=== PATIENT | male | born 1955 | race Caucasian/White ===

== ENCOUNTER 2017-08-12 12:41 | Inpatient (IN) | payer OTHER ==
[~2017-08-12] VITALS: Ht 180.3 cm; Wt 89.6 kg
[~2017-08-12 12:41] MED LIST: AMOCLA875 PO; ASPI81CH PO; CLIN300 PO; CLOP75 PO; CRUTCH2 XX; Cymbalta20 MG PO; HYDCHL25 PO; HYDR1TAB94 PO; INSDET100; INSDET100 SC; ISOD40ER; ISOMON20 PO; LISI5 PO; LUMIGAN2.5 ML LEFTEYE; MAGOXI400 PO; METO50 PO; Norco 5-325 Ta1 EACH PO; Novolog100 UNIT/1; PREG300 PO; SIMBRINZA 1%-0.28 ML LEFTEYE; SIMV10 PO; Zofran Odt8 MG SL
[2017-08-12] MEDS ORDERED: Norco 7.5-3251 EACH PO (13:00)
[2017-08-12 13:37] LABS: BASOPHILS ABSOLUTE AUTO 0.01 K/mm3 (0.00-0.23); BASOPHILS PERCENT AUTO 0 % (0-2); Hemoglobin 9.7 g/dL (13.5-17.5); IMMATURE GRAN ABSOLUTE AUTO 0.02 K/mm3 (0.00-0.10); IMMATURE GRAN PERCENT AUTO 0 % (0-1); Mean Platelet Volume 10.2 fL (9.1-12.4)
[2017-08-12 13:43] LABS: EOSINOPHILS ABSOLUTE AUTO 0.06 K/mm3 (0.00-0.68); EOSINOPHILS PERCENT AUTO 1 % (0-6); Hematocrit 29.8 % (37.0-53.0); LYMPHOCYTES ABSOLUTE AUTO 1.75 K/mm3 (0.84-5.20); LYMPHOCYTES PERCENT AUTO 33 % (21-46); MONOCYTES ABSOLUTE AUTO 0.69 K/mm3 (0.16-1.47); MONOCYTES PERCENT AUTO 13 % (4-13); Mean Corpuscular HGB 30.3 pg (26.0-34.0); Mean Corpuscular HGB Conc 32.6 g/dL (31.5-36.5); Mean Corpuscular Volume 93 fL (80-100); NEUTROPHILS ABSOLUTE AUTO 2.81 K/mm3 (1.96-9.15); NEUTROPHILS PERCENT AUTO 53 % (41-73); NRBC ABSOLUTE 0.03 K/mm3 (0.00-0.02); NRBC Auto 0.6 /100 WBC (0.0-0.2); Platelet Count 199 K/mm3 (150-400); RDW Coefficient Variation 12.5 % (11.7-14.2); RDW Standard Deviation 42.7 fL (35.1-46.3); White Blood Cell Count 5.34 K/mm3 (4.00-11.30)
[2017-08-12 13:53] LABS: Alanine Aminotransfer (ALT/SGP 27 U/L (12-78); Albumin, Blood 2.7 g/dL (3.4-5.0); Albumin/Globulin Ratio 0.8 (0.8-1.8); Alk Phos 57 U/L (50-136); Anion Gap 7 mmol/L (6-16); Aspartate Aminotrans (AST/SGOT 18 U/L (12-37); Bilirubin, Total 0.7 mg/dL (0.1-1.0); Blood Urea Nitrogen 16 mg/dL (8-24); Bun/Creatinine Ratio 22.7 (12.0-20.0); CO2, Blood 27 mmol/L (21-32); Calcium, Blood 8.5 mg/dL (8.5-10.1); Chloride, Blood 103 mmol/L (98-108); Creatinine, Blood 0.71 mg/dL (0.60-1.20); Globulin, Blood 3.4 g/dL (2.2-4.0); Glomerular Filtration Rate >60 (60-); Glucose, Blood 149 mg/dL (70-99); Magnesium, Blood 2.1 mg/dL (1.6-2.4); Sodium, Blood 137 mmol/L (136-145); Total Protein, Blood 6.1 g/dL (6.4-8.2)
[2017-08-12 16:24] LABS: IMMATURE RETIC FRACTION 14.3 % (2.3-16.0); RETIC HGB EQUIVALENT 33.9 pg (28.20-36.60); RETICULOCYTE COUNT PERCENT 2.64 % (0.50-2.50)
[2017-08-14 08:31] LABS: Hematocrit 26.2 % (37.0-53.0); Hemoglobin 8.8 g/dL (13.5-17.5)
[2017-08-14 13:59] LABS: Hemoglobin 8.7 g/dL (13.5-17.5)
[2017-08-14 14:30] LABS: International Normalized Ratio 1.12; Prothrombin Time Results 11.7 Sec (9.7-11.5)
[2017-08-15 04:56] LABS: BASOPHILS PERCENT AUTO 0 % (0-2); EOSINOPHILS ABSOLUTE AUTO 0.07 K/mm3 (0.00-0.68); EOSINOPHILS PERCENT AUTO 2 % (0-6); Hemoglobin 8.5 g/dL (13.5-17.5); IMMATURE GRAN ABSOLUTE AUTO 0.02 K/mm3 (0.00-0.10); IMMATURE GRAN PERCENT AUTO 1 % (0-1); LYMPHOCYTES ABSOLUTE AUTO 1.24 K/mm3 (0.84-5.20); LYMPHOCYTES PERCENT AUTO 30 % (21-46); MONOCYTES ABSOLUTE AUTO 0.49 K/mm3 (0.16-1.47); MONOCYTES PERCENT AUTO 12 % (4-13); Mean Corpuscular HGB 29.6 pg (26.0-34.0); Mean Corpuscular HGB Conc 32.7 g/dL (31.5-36.5); Mean Corpuscular Volume 91 fL (80-100); Mean Platelet Volume 10.5 fL (9.1-12.4); NEUTROPHILS ABSOLUTE AUTO 2.33 K/mm3 (1.96-9.15); NEUTROPHILS PERCENT AUTO 56 % (41-73); Platelet Count 213 K/mm3 (150-400); RDW Coefficient Variation 11.9 % (11.7-14.2); RDW Standard Deviation 39.2 fL (35.1-46.3); Red Blood Cell Count 2.87 M/mm3 (4.30-5.90); White Blood Cell Count 4.15 K/mm3 (4.00-11.30)
[2017-08-15 05:21] LABS: Anion Gap 6 mmol/L (6-16); Blood Urea Nitrogen 12 mg/dL (8-24); Bun/Creatinine Ratio 25.3 (12.0-20.0); CO2, Blood 27 mmol/L (21-32); Calcium, Blood 8.6 mg/dL (8.5-10.1); Chloride, Blood 103 mmol/L (98-108); Creatinine, Blood 0.48 mg/dL (0.60-1.20); Glomerular Filtration Rate >60 (60-); Glucose, Blood 271 mg/dL (70-99); Potassium, Blood 4.4 mmol/L (3.5-5.5); Sodium, Blood 136 mmol/L (136-145)
[2017-08-15 23:13] LABS: Stool Occult Blood Guaiac 1 Neg (Neg)
[2017-08-17] MEDS ORDERED: Milk Of Ma400 MG/5 M PO (09:01)
[2017-08-17] MEDS ORDERED: DOCU100 PO (09:02)
[2017-08-17] MEDS ORDERED: Bactrim Ds Tab1 EACH PO (09:03)
[2017-08-17] MEDS ORDERED: FERSU220EL PO (09:03)
[2017-08-17] MEDS ORDERED: HYDR1TAB94 PO (09:04)
== END 2017-08-17 18:45 | disposition home or self-care (01) | DRG 982 ==
LOC: ER 12:41 → MEDS 12:42 → SURS 12:42 → MEDS 17:45 → SURS 08-16 10:49
PROVIDERS: Internal Medicine; Orthopaedic Surgery
PROC: 0QSH36Z Reposition Left Tibia with Intramedullary Internal Fixation Device, Percutaneous Approach (ICD-10-PCS; principal; 2017-08-16 07:30)
DX: I95.1 Orthostatic hypotension (principal); S82.202A Unspecified fracture of shaft of left tibia, initial encounter for closed fracture; D64.9 Anemia, unspecified; I25.10 Atherosclerotic heart disease of native coronary artery without angina pectoris; Z79.4 Long term (current) use of insulin; W19.XXXA Unspecified fall, initial encounter; S82.302A Unspecified fracture of lower end of left tibia, initial encounter for closed fracture; S82.492A Other fracture of shaft of left fibula, initial encounter for closed fracture; E10.40 Type 1 diabetes mellitus with diabetic neuropathy, unspecified; I10 Essential (primary) hypertension
CPT/HCPCS: 36415; 73590; 73610; 80048; 80053; 82272; 82533; 82607; 82728; 82746; 82947; 83540; 83550; 83735; 85014; 85018; 85025; 85045; 85610; 85730; 86850; 86900; 86901; 93005; 93010; 96360; 97110; 97116; 97161; 99285; C1713; C1769; G8978; G8979; J0171; J0690; J0834; J1650; J1815; J2250; J2405; J3010; J7030; J7120

== ENCOUNTER 2018-05-02 08:32 | Day surgery (SDC) | payer OTHER ==
[~2018-05-02] VITALS: Ht 180.3 cm; Wt 78.5 kg
[~2018-05-02 08:32] MED LIST changes: +Bactrim Ds Tab1 EACH PO; +DOCU100 PO; +FERSU220EL PO; +LUMIGAN2.5 ML BOTHEYES; -LUMIGAN2.5 ML LEFTEYE; +Milk Of Ma400 MG/5 M PO; +Norco 7.5-3251 EACH PO; +Prozac20 MG PO
--- NOTE | 2018-05-02 09:07 | NUR ---
History, Chart, Medications and Allergies reviewed before start of procedure. Patient confirms NPO status and agrees with scheduled surgery. Lungs clear T/O to Auscultation. Patient reports completing Chlorhexadine shower X2 prior to admission to hospital. Pre-Op teaching done. Pt verbalizes understanding. Patient States Post-Procedure ride home has been arranged. BELONGINGS PLACED UNDER PATIENT GURNEY. ASSISTED PATIENT TO DRESS. PATIENT HAD A RECENT FALL, YESTERDAY THAT CREATED A LOT OF NEW PAIN IN R KNEE. SKIN INTACT ON R KNEE. LEFT KNEE WITH REDDISH/PINK AREA ON KNEE ABOUT ONE INCH ACROSS CIRCULAR AREA, IN ADDITION TO SOME DARKER PINKISH RED AREAS DOWN THE KNEE AREA, PLAN IS TO TAKE A PUNCH BIOPSY OF THE AREA TODAY.
--- NOTE | 2018-05-02 09:25 | NUR ---
ICE APPLIED TO RIGHT KNEE, PATIENT VERY PAINFUL FROM YESTERDAY'S FALL AT HOME. NO VISIBLE BRUISING, JUMPS AT VERY LIGHT TOUCH.
--- NOTE | 2018-05-02 09:38 | NUR ---
PER DR DURON WILL LEAVE OFF PAS ON NON-OPERATIVE LEG DUE TO PAINFUL R KNEE. PER DR DURON NO CLIP PREP REQUIRED.
--- NOTE | 2018-05-02 09:56 | NUR ---
RN HEMO DIALYSIS REPORT COMPLETED AT BEDSIDE.
--- NOTE | 2018-05-02 12:12 | NUR ---
"DAY SURGERY RN | DISCHARGE Patient VSS, A/O. Denies nausea, pain. Disharge instructions given with family at bedside. Patient tolerating PO fluids and crackers. Sites c/d/i. No issues in stepdown. 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 All belonings returned to patient."
== END 2018-05-02 22:46 | disposition home or self-care (01) ==
LOC: ORSCMMR 08:32 → ORD 10:00 → ORSCMMR 22:46
PROVIDERS: Orthopaedic Surgery
PROC: 0HBNXZX Excision of Left Foot Skin, External Approach, Diagnostic (ICD-10-PCS; principal; 2018-05-02 10:00)
PROC: 0QPH04Z Removal of Internal Fixation Device from Left Tibia, Open Approach (ICD-10-PCS; principal; 2018-05-02 10:00)
DX: T84.84XA Pain due to internal orthopedic prosthetic devices, implants and grafts, initial encounter (principal); S82.232D Displaced oblique fracture of shaft of left tibia, subsequent encounter for closed fracture with routine healing; S82.452D Displaced comminuted fracture of shaft of left fibula, subsequent encounter for closed fracture with routine healing; L91.0 Hypertrophic scar; E10.8 Type 1 diabetes mellitus with unspecified complications; I10 Essential (primary) hypertension; I25.10 Atherosclerotic heart disease of native coronary artery without angina pectoris; Z79.4 Long term (current) use of insulin; Z79.899 Other long term (current) drug therapy; Z79.82 Long term (current) use of aspirin; Z87.891 Personal history of nicotine dependence
CPT/HCPCS: 73590; 82947; 88305; J0690; J1100; J2250; J2370; J2405; J3010; J7120

== ENCOUNTER 2019-03-07 14:50 | Inpatient (IN) | payer OTHER ==
[~2019-03-07] VITALS: Ht 182.9 cm; Wt 76.2 kg
[~2019-03-07 14:50] MED LIST changes: -ASPI81CH PO; -CLOP75 PO; -INSDET100 SC; -ISOMON20 PO; -LISI5 PO; -METO50 PO; -Novolog100 UNIT/1; -Prozac20 MG PO; -SIMV10 PO
[2019-03-07 15:23] LABS: BASOPHILS ABSOLUTE AUTO 0.02 K/mm3 (0.00-0.23); BASOPHILS PERCENT AUTO 0 % (0-2); EOSINOPHILS PERCENT AUTO 0 % (0-6); Hematocrit 49.4 % (37.0-53.0); Hemoglobin 15.8 g/dL (13.5-17.5); IMMATURE GRAN ABSOLUTE AUTO 0.06 K/mm3 (0.00-0.10); IMMATURE GRAN PERCENT AUTO 1 % (0-1); LYMPHOCYTES ABSOLUTE AUTO 0.51 K/mm3 (0.84-5.20); LYMPHOCYTES PERCENT AUTO 5 % (21-46); MONOCYTES ABSOLUTE AUTO 0.37 K/mm3 (0.16-1.47); MONOCYTES PERCENT AUTO 4 % (4-13); Mean Corpuscular HGB 30.4 pg (26.0-34.0); Mean Corpuscular Volume 95 fL (80-100); Mean Platelet Volume 10.2 fL (9.1-12.4); NEUTROPHILS ABSOLUTE AUTO 8.46 K/mm3 (1.96-9.15); NEUTROPHILS PERCENT AUTO 90 % (41-73); Platelet Count 266 K/mm3 (150-400); RDW Coefficient Variation 12.4 % (11.7-14.2); Red Blood Cell Count 5.19 M/mm3 (4.30-5.90); White Blood Cell Count 9.42 K/mm3 (4.00-11.30)
[2019-03-07 15:45] LABS: Alanine Aminotransfer (ALT/SGP 15 U/L (12-78); Albumin, Blood 3.5 g/dL (3.4-5.0); Albumin/Globulin Ratio 0.7 (0.8-1.8); Alk Phos 92 U/L (50-136); Anion Gap 25 mmol/L (6-16); Aspartate Aminotrans (AST/SGOT 11 U/L (12-37); Bilirubin, Total 0.8 mg/dL (0.1-1.0); Blood Urea Nitrogen 23 mg/dL (8-24); Bun/Creatinine Ratio 38.9 (12.0-20.0); CO2, Blood 7 mmol/L (21-32); Calcium, Blood 10.3 mg/dL (8.5-10.1); Chloride, Blood 106 mmol/L (98-108); Creatinine, Blood 0.59 mg/dL (0.60-1.20); Glomerular Filtration Rate >60 (60-); Glucose, Blood 412 mg/dL (70-99); Potassium, Blood 4.6 mmol/L (3.5-5.5); Sodium, Blood 138 mmol/L (136-145); Total Protein, Blood 8.5 g/dL (6.4-8.2)
[2019-03-07] MEDS ORDERED: Isosorbide Mono60 MG PO (17:01)
[2019-03-07] MEDS ORDERED: Lisinopril2.5 MG PO (17:01)
[2019-03-07] MEDS ORDERED: TIMO.5OPSO BOTHEYES (17:03)
[2019-03-07] MEDS ORDERED: INSDET100 SC (17:05)
[2019-03-07] MEDS ORDERED: Humalog100 UNIT/3 SC (17:06)
[2019-03-07] MEDS ORDERED: CLOP75 PO (17:07)
[2019-03-07] MEDS ORDERED: SIMV40 PO (17:08)
[2019-03-07] MEDS ORDERED: METO25 PO (17:08)
[2019-03-07] MEDS ORDERED: Aspir 8181 MG PO (17:10)
[2019-03-07] MEDS ORDERED: Prozac20 MG PO (17:11)
[2019-03-07 17:14] LABS: Bicarbonate Venous 9.3 mmol/L (24.0-30.0); PCO2 Venous 22.7 mmHg (38-42); PO2 Venous 163 mmHg (38-42)
[2019-03-07 17:15] LABS: pH Blood Venous 7.06 (7.34-7.37)
--- NOTE | 2019-03-07 18:48 | NUR ---
PT ARRIVES TO UNIT FROM ER AT 1800. INSULIN DRIP INFUSING AT 3 UNITS/HR. CHEMBG 402. PT A&OX 4. ANSWERS QUESTIONS APPROPRIATELY. DENIES PAIN. REPORTS NAUSEA. 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 REPORTS N/V X 2 DAYS. STATES EMESIS TODAY WAS DARK AND COFFEE GROUND LIKE, DENIES BLACK OR TARRY STOOLS. STATES HE HASNT TAKEN HIS MED SINCE LAST NOC. INSULIN DEPT DM. PT PALE, COOL, LOWER EXTERMITIES PALE AND COOL, DELAYED CAP REFILL. LUNGS CLEAR. ABD FLAT, SOFT, NON TENDER. BT X 4. MAEW. ORIENTED TO ROOM. REPORT TO ONCOMING NURSE.
--- NOTE | 2019-03-07 19:15 | NUR ---
ASSESSMENT/ASSUMED CARE PT SITTING UP IN BED. A&O. DENIES PAIN OR DISCOMFORT. BLOOD GLUCOSE UP TO 441, INCREASED INSULIN GTT TO 4UNITS. LUNGS CLEAR ON ROOMAIR. RESP EVEN AND NONLABORED. DENIES SOB OR COUGH. HEART RATE REGULAR. NO EDEMA. SCD'S APPLIED. BILAT LOWER EXT COOL TO TOUCH. PT STATES,"I CAN'T FEEL MY FEET AND MY HANDS ARE NUMB AND TINGLING FROM NEUROPATHY". BT+ ABD FLAT AND NONTENDER. DENIES N/V AT THIS TIME. PT STATES,"I DID FOR THE LAST 2 DAYS BUT NOT RIGHT NOW". PT TAKING ICE CHIPS. PT MOVING SELF AOUND IN BED.
--- NOTE | 2019-03-07 19:54 | NUR ---
CLARIFIED ORDER CALLED KRISTINE HOSPITALIST AND CLARIFIED LR BOLUS ORDER. GIVE ONE LITER ONLY OF LR BOLUS. HOLD LANUTS TONIGHT DUE TO INSULIN GTT.
[2019-03-07 20:49] LABS: Source, Urine Clean Catch
[2019-03-07 20:52] LABS: Bilirubin, Urine Neg (Neg); Blood, Urine 2+ (Neg); Glucose Qualitative, Urine 4+ (Neg); Ketones, Urine 4+ (Neg); Leukocyte Esterase, Urine Neg (Neg); Nitrite, Urine Neg (Neg); Protein, Urine 3+ (Neg); Urobilinogen, Urine NORM (Normal)
[2019-03-07 20:56] LABS: Appearance, Urine Clear (Clear); Color, Urine Yellow (P-Yellow)
[2019-03-07 21:03] LABS: Bacteria Rare /hpf; Red Blood Cells, Urine 0-2 /hpf (0-2); Squamous Epithelial Cells Not Seen /hpf (Few); White Blood Cells, Urine 0-2 /hpf (0-5)
--- NOTE | 2019-03-07 21:10 | NUR ---
HOSPITALIST HOSPITALIST KRISTINE AT BEDSIDE. GI CONSULT CANCELLED. EXPLAINED TO PT. BLOOD GLUSOSE 341, INSULIN INCREASED TO 3.5.
[2019-03-07 21:27] LABS: Anion Gap 18 mmol/L (6-16); Blood Urea Nitrogen 25 mg/dL (8-24); Bun/Creatinine Ratio 47.3 (12.0-20.0); CO2, Blood 10 mmol/L (21-32); Calcium, Blood 9.2 mg/dL (8.5-10.1); Chloride, Blood 116 mmol/L (98-108); Creatinine, Blood 0.53 mg/dL (0.60-1.20); Glomerular Filtration Rate >60 (60-); Glucose, Blood 367 mg/dL (70-99); Potassium, Blood 4.1 mmol/L (3.5-5.5); Sodium, Blood 144 mmol/L (136-145)
[2019-03-07] MEDS ORDERED: PREG300 PO (22:21)
[2019-03-07] MEDS ORDERED: SIMBRINZA 1%-0.28 ML BOTHEYES (22:22)
[2019-03-07] MEDS ORDERED: HYDCHL25 PO (22:23)
--- NOTE | 2019-03-07 23:09 | NUR ---
NAUSEA PT C/O NAUSEA, MED WITH ZOFRAN. BLOOD GLUCOSE 281, INCREASED INSULIN TO 4UNITS.
--- NOTE | 2019-03-08 00:12 | NUR ---
REASSESSMENT PT RESTING QUIELTY. BLOOD GLUCOSE DOWN TO 249, INSULIN AT 4 UNITS. IV FLUID CHANGED FROM 1/2 NS AT 200 ML/HR TO D5 1/2 AT 200 ML/HR.
--- NOTE | 2019-03-08 00:39 | NUR ---
VOMITING PT HAD EMESIS 200ML BROWN LIQUID, MED WITH REGLAND
[2019-03-08 01:38] LABS: Anion Gap 13 mmol/L (6-16); Blood Urea Nitrogen 23 mg/dL (8-24); Bun/Creatinine Ratio 45.8 (12.0-20.0); CO2, Blood 16 mmol/L (21-32); Calcium, Blood 9.1 mg/dL (8.5-10.1); Chloride, Blood 115 mmol/L (98-108); Glomerular Filtration Rate >60 (60-); Glucose, Blood 276 mg/dL (70-99); Potassium, Blood 4.1 mmol/L (3.5-5.5); Sodium, Blood 144 mmol/L (136-145)
--- NOTE | 2019-03-08 04:10 | NUR ---
REASSESSMENT PT SLEEPING AWAKENS EASILY. DENIES PAIN. VSS. BLOOD GLUCOSE 260, CONT INSULIN GTT AT 7 UNITS. PT C/O NAUSEA. CALL TO DR SHELLEY, ORDER FOR ZOFRAN CHANGED TO Q4HR PRN.
[2019-03-08 05:11] LABS: BASOPHILS ABSOLUTE AUTO 0.01 K/mm3 (0.00-0.23); BASOPHILS PERCENT AUTO 0 % (0-2); EOSINOPHILS PERCENT AUTO 0 % (0-6); Hematocrit 37.5 % (37.0-53.0); Hemoglobin 12.6 g/dL (13.5-17.5); IMMATURE GRAN ABSOLUTE AUTO 0.06 K/mm3 (0.00-0.10); IMMATURE GRAN PERCENT AUTO 1 % (0-1); LYMPHOCYTES ABSOLUTE AUTO 0.83 K/mm3 (0.84-5.20); LYMPHOCYTES PERCENT AUTO 9 % (21-46); MONOCYTES ABSOLUTE AUTO 1.14 K/mm3 (0.16-1.47); MONOCYTES PERCENT AUTO 12 % (4-13); Mean Corpuscular HGB 30.4 pg (26.0-34.0); Mean Corpuscular HGB Conc 33.6 g/dL (31.5-36.5); NEUTROPHILS ABSOLUTE AUTO 7.33 K/mm3 (1.96-9.15); NEUTROPHILS PERCENT AUTO 78 % (41-73); Platelet Count 236 K/mm3 (150-400); RDW Coefficient Variation 12.5 % (11.7-14.2); RDW Standard Deviation 40.8 fL (35.1-46.3); Red Blood Cell Count 4.14 M/mm3 (4.30-5.90); White Blood Cell Count 9.37 K/mm3 (4.00-11.30)
[2019-03-08 05:13] LABS: Mean Corpuscular Volume 91 fL (80-100)
[2019-03-08 05:42] LABS: Anion Gap 9 mmol/L (6-16); Blood Urea Nitrogen 22 mg/dL (8-24); Bun/Creatinine Ratio 46.4 (12.0-20.0); CO2, Blood 19 mmol/L (21-32); Chloride, Blood 115 mmol/L (98-108); Creatinine, Blood 0.47 mg/dL (0.60-1.20); Glomerular Filtration Rate >60 (60-); Glucose, Blood 262 mg/dL (70-99); Potassium, Blood 3.7 mmol/L (3.5-5.5); Sodium, Blood 143 mmol/L (136-145)
--- NOTE | 2019-03-08 06:25 | NUR ---
SHIFT SUMMARY PT RESTING QUIETLY. MED WITH ZOFRAN AND REGLAN DURING THE NIGHT FOR N/V. BLOOD GLUCOSE CHECK Q1HR AND TITRATING INSULIN GTT TO KEEP BLOOD GLUCOSE AROUND 250. INSULIN GTT CURRENTLY AT 8 UNITS/HR. IV FLUID CHANGED FROM 1/2 NS AT 200 ML/HR TO D5 1/2 NS AT 200 ML/HR WHEN BLOOD GLUSOSE DROPED BELOW 250. PT IS CURRENTLY NPO BUT IS TAKING ICE CHIPS. CO2 IS UP TO 19 WITH ANION GAP DOWN TO 9. VSS. REPORT TO ON COMING NURSE
--- NOTE | 2019-03-08 08:07 | NUR ---
ASSUMED CARE AT 0700. REPORT FROM TATIANA MOHAMUD. PT RESTING IN BED. WAKES c VERBAL STIMULI. A&OX 4. ANSWERS QUESTIONS APPROPRIATELY. DENIES PAIN. REPORTS NAUSEA IMPROVED SINCE MEDICATED ON NOC SHIFT. MAEW. PT P/W/D. LUNGS CLEAR. VSS. ABD FLAT, SOFT, NON TENDER. BT X 4. SCDS IN PLACE. INSULIN INFUSING AT 7 UNITS/HR AT THIS TIME, D5 1/2NS AT 200ML/HR, PROTONIX 10ML/HR. PT DENIES NEEDS AT THIS TIME. WILL CONTINUE Q1 CHEMBG AND INSULIN TITRATION. CALL LIGHT IN REACH. WILL CONTINUE TO MONITOR.
[2019-03-08 09:44] LABS: Anion Gap 8 mmol/L (6-16); Blood Urea Nitrogen 20 mg/dL (8-24); Bun/Creatinine Ratio 48.3 (12.0-20.0); CO2, Blood 20 mmol/L (21-32); Calcium, Blood 9.1 mg/dL (8.5-10.1); Chloride, Blood 117 mmol/L (98-108); Creatinine, Blood 0.41 mg/dL (0.60-1.20); Glomerular Filtration Rate >60 (60-); Glucose, Blood 185 mg/dL (70-99); Potassium, Blood 3.6 mmol/L (3.5-5.5); Sodium, Blood 145 mmol/L (136-145)
--- NOTE | 2019-03-08 17:00 | NUR ---
PT TREMOROUS, TEMP 100.3 TEMPORAL ARTERY. PT LETHAGIC. WAKES c VERBAL STIMULI. FOLLOWS SIMPLE COMMANDS. ANSWERS QUESTIONS APPROPRIATELY BUT APPEARS TO FALL ASLEEP EASILY WHEN UNDISTURBED. PT DENIES PAIN OR NAUSEA. ABD DISTENDED. ROLDAN PLACED, 1900 ML CLEAR YELLOW URINE OUT. DR HICKEY CALLED AND IN ROOM TO SEE PT. NEW ORDERS OBTAINED FOR SEPTIC WORKUP. VSS. WILL CONTINUE TO MONITOR.
[2019-03-08 17:39] LABS: BASOPHILS ABSOLUTE AUTO 0.01 K/mm3 (0.00-0.23); BASOPHILS PERCENT AUTO 0 % (0-2); EOSINOPHILS PERCENT AUTO 0 % (0-6); Hematocrit 38.9 % (37.0-53.0); Hemoglobin 12.4 g/dL (13.5-17.5); IMMATURE GRAN ABSOLUTE AUTO 0.03 K/mm3 (0.00-0.10); IMMATURE GRAN PERCENT AUTO 0 % (0-1); LYMPHOCYTES ABSOLUTE AUTO 0.38 K/mm3 (0.84-5.20); LYMPHOCYTES PERCENT AUTO 5 % (21-46); MONOCYTES ABSOLUTE AUTO 1.05 K/mm3 (0.16-1.47); MONOCYTES PERCENT AUTO 12 % (4-13); Mean Corpuscular HGB 30.1 pg (26.0-34.0); Mean Corpuscular HGB Conc 31.9 g/dL (31.5-36.5); Mean Corpuscular Volume 94 fL (80-100); Mean Platelet Volume 9.8 fL (9.1-12.4); NEUTROPHILS ABSOLUTE AUTO 7.06 K/mm3 (1.96-9.15); NEUTROPHILS PERCENT AUTO 83 % (41-73); Platelet Count 224 K/mm3 (150-400); RDW Coefficient Variation 12.7 % (11.7-14.2); RDW Standard Deviation 43.8 fL (35.1-46.3); Red Blood Cell Count 4.12 M/mm3 (4.30-5.90); White Blood Cell Count 8.53 K/mm3 (4.00-11.30)
[2019-03-08 17:50] LABS: Anion Gap 4 mmol/L (6-16); Blood Urea Nitrogen 19 mg/dL (8-24); Bun/Creatinine Ratio 38.9 (12.0-20.0); CO2, Blood 20 mmol/L (21-32); Calcium, Blood 9.2 mg/dL (8.5-10.1); Chloride, Blood 115 mmol/L (98-108); Creatinine, Blood 0.49 mg/dL (0.60-1.20); Glomerular Filtration Rate >60 (60-); Glucose, Blood 244 mg/dL (70-99); Potassium, Blood 3.7 mmol/L (3.5-5.5); Sodium, Blood 139 mmol/L (136-145)
[2019-03-08 18:23] LABS: Source, Urine Catheter
[2019-03-08 18:26] LABS: Bilirubin, Urine Neg (Neg); Blood, Urine 2+ (Neg); Glucose Qualitative, Urine 4+ (Neg); Ketones, Urine 4+ (Neg); Leukocyte Esterase, Urine 1+ (Neg); Nitrite, Urine Neg (Neg); Protein, Urine 3+ (Neg); Specific Gravity, Urine 1.015 (1.003-1.022); Urobilinogen, Urine NORM (Normal)
--- NOTE | 2019-03-08 18:28 | NUR ---
SHIFT SUMMARY PT REMAINS ON INSULIN DRIP AT 3 UNITS/HR. ATTEMPTED TO GIVE PT ICE CHIPS, PT HAS ONE EPISODE OF NAUSEA, DRY HEAVING. MEDICATED c REGLAN, PT STATES NAUSEA RESOLVED. PT BECAME LETHARGIC THIS EVENING. WAKES c VERBAL STIMULI, FOLLOWS SIMPLE DIRECTIONS, ANSWERS QUESTIONS APPROPRIATELY BUT APPEARS TO FALL BACK ASLEEP s STIMULI. DR HICKEY NOTIFIED. SEPSIS WORKUP INITIATED. BLADDER SCANNED, ROLDAN PLACED. VSS. CALL TO BE PLACED TO KRISTINE donald RESULTS OF LABS/IMAGING. REPORT TO ONCOMING NURSE.
[2019-03-08 18:30] LABS: Appearance, Urine Clear (Clear); Color, Urine Yellow (P-Yellow)
[2019-03-08 18:32] LABS: Bacteria Many /hpf; Squamous Epithelial Cells Rare /hpf (Few)
--- NOTE | 2019-03-08 19:26 | NUR ---
ASSESSMENT/ASSUMED CARE/ CALL TO HOSPITALIST PT LYING IN BED WITH EYES CLOSED. LETHARGIC. OPENS EYES TO VERBAL STIMULI. SLOW TO RESPOND VERBALLY. TEMP 101.4. BLANKETS REMOVED. LUNGS CLEAR ON ROOMAIR. RESP EVEN AND NONLABORED. HEART RATE REGULAR. BP STABLE. PT DENEIS PAIN OR DISCOMFORT. STATES,"I'M NOT HAVING ANY NAUSEA RIGHT NOW. I DON'T FEEL BAD". PT BACK TO SLEEP QUICKLY WHEN UNDISTURBED. TREMORS INCREASED FROM LAST NIGHT. PROTONIX GTT AT 10 ML/HR TO LEFT WRIST 20G, SITE CLEAR. INSULIN GTT AT 3 UINTS TO 20G RIGHT HAND/WRIST, SITE CLEAR. 20G TO RIGHT FORARM WITH D5 1/2 NS AT 200ML/HR WITH ZOSYN, SITE CLEAR. ROLDAN CATH PATENT AND DRAINING CLEAR YELLOW URINE. CALL TO HOSPITALIST REGARDING TEMP AND PT BEING SLOW TO RESPOND/LETHARGIC. ORDER OBTAINED FOR TYLENOL.
--- NOTE | 2019-03-08 21:17 | NUR ---
HYPOTENSION PT SLEEPING. BP 85/41 MAP 54 WITH HEART RATE 70 ON RIGHT ARM. RECHECKED BP ON LEFT ARM 92/41 MAP 46 HEART RATE 70. PT HARD TO AWAKEN, OPENS EYES BRIEFLY TO STERNAL RUB AND STATES,"I'M ALRIGHT". THAN BACK TO SLEEP, UNABLE TO STAY AWAKE. CALL TO KRISTINE HOSPITALIST. RECEIVED ORDER FOR ONE LITER NS BOLUS.
--- NOTE | 2019-03-08 21:27 | NUR ---
HYPOTENSION BP 86/37 MAP 52 HEART RATE 66 PT SLEEPING, DIFFICULT TO AWAKEN. NS ONE LITER BOLUS STARTED
--- NOTE | 2019-03-08 21:49 | NUR ---
HOSPITALIST KRISTINE HOSPITALIST AT BEDSIDE. PT RECEIVING NS BOLUS. BP 97/43 MAP 58 HEART RATE 65.
--- NOTE | 2019-03-08 23:45 | NUR ---
REASSESSMENT/HOSPITALIST PT HAVING TREMORS, STATES,"I'M COLD" TEMP UP TO 100.5. PT REPOSITIONED. LUNGS CLEAR ON ROOMAIR. PT ONLY OPENING EYES BRIEFLY, NOT FOLLOWING INSTRUCTIONS. CALL TO HOSPITALIST KRISTINE. ORDER FOR TYLENOL CHANGED TO Q4 PRN PO OR NE.
--- NOTE | 2019-03-09 00:15 | NUR ---
TEMP TEMP VIA FOREHEAD 100.5, TYLENOL GIVEN TX. RECTAL TEMP PROBE PLACED TEMP VIA RECTAL 103.6. PT INCONT OF STOOL. LEW CARE DONE. BLANKET REMOVED. ICE PACKS APPLIED BEHIND NECK, TO GROIN AND BILAT UNDER ARMS.
--- NOTE | 2019-03-09 00:31 | NUR ---
TEMP CALL TO HOSPITALIST DR BOYER REGARDING TEMP 103.6. RECEIVED ORDERS FOR ASA MD AND IBUPROFEN PO FOR FEVER.
--- NOTE | 2019-03-09 00:54 | NUR ---
TEMP TEMP DOWN TO 103.3 RECTAL. ASPRIN 300MG SUPP GIVEN. PT REPOSITIONED
[2019-03-09 02:41] LABS: Adenovirus Not Detected (NOT DETECT); Bordetella pertussis Not Detected (NOT DETECT); Chlamydophila pneumoniae Not Detected (NOT DETECT); Coronavirus 229E Not Detected (NOT DETECT); Coronavirus HKU1 Not Detected (NOT DETECT); Coronavirus NL63 Not Detected (NOT DETECT); Coronavirus OC43 Not Detected (NOT DETECT); Human Metapneumovirus Not Detected (NOT DETECT); Human Rhinovirus/Enterovirus Not Detected (NOT DETECT); Influenza A Not Detected (NOT DETECT); Influenza A/2009-H1 Not Detected (NOT DETECT); Influenza A/H1 Not Detected (NOT DETECT); Influenza A/H3 Not Detected (NOT DETECT); Influenza B Not Detected (NOT DETECT); Mycoplasma pneumoniae Not Detected (NOT DETECT); Parainfluenza Virus 1 Not Detected (NOT DETECT); Parainfluenza Virus 2 Not Detected (NOT DETECT); Parainfluenza Virus 3 Not Detected (NOT DETECT); Parainfluenza Virus 4 Not Detected (NOT DETECT); Respiratory Syncytial Virus Not Detected (NOT DETECT)
[2019-03-09 03:38] LABS: Hematocrit 32.8 % (37.0-53.0); Hemoglobin 10.8 g/dL (13.5-17.5); Mean Corpuscular HGB 29.8 pg (26.0-34.0); Mean Corpuscular HGB Conc 32.9 g/dL (31.5-36.5); Mean Platelet Volume 9.8 fL (9.1-12.4); Platelet Count 155 K/mm3 (150-400); RDW Coefficient Variation 12.5 % (11.7-14.2); RDW Standard Deviation 41.4 fL (35.1-46.3); Red Blood Cell Count 3.62 M/mm3 (4.30-5.90); White Blood Cell Count 5.03 K/mm3 (4.00-11.30)
[2019-03-09 03:43] LABS: Mean Corpuscular Volume 91 fL (80-100)
[2019-03-09 03:57] LABS: Anion Gap 5 mmol/L (6-16); Blood Urea Nitrogen 12 mg/dL (8-24); Bun/Creatinine Ratio 28.4 (12.0-20.0); CO2, Blood 22 mmol/L (21-32); Calcium, Blood 8.6 mg/dL (8.5-10.1); Chloride, Blood 115 mmol/L (98-108); Creatinine, Blood 0.42 mg/dL (0.60-1.20); Glomerular Filtration Rate >60 (60-); Glucose, Blood 215 mg/dL (70-99); Potassium, Blood 3.2 mmol/L (3.5-5.5); Sodium, Blood 142 mmol/L (136-145)
[2019-03-09 04:26] LABS: BAND PERCENT MAN 7 % (0-8); BASOPHILS PERCENT MAN 0 % (0-2); EOSINOPHILS PERCENT MAN 0 % (0-6); LYMPHOCYTES PERCENT MAN 12 % (21-46); MONOCYTES ABSOLUTE MAN 0.55 K/mm3 (0.16-1.47); MONOCYTES PERCENT MAN 11 % (4-13); MYELOCYTE ABSOLUTE MAN 0.05 K/mm3 (0.00-0.00); MYELOCYTE PERCENT MAN 1 % (0-0); NEUTROPHILS ABSOLUTE MAN 3.82 K/mm3 (1.96-9.15); SEG NEUTROPHILS PERCENT MAN 69 % (41-73); TOTAL CELLS COUNTED 100
--- NOTE | 2019-03-09 06:09 | NUR ---
SHIFT SUMMARY PT LETHARGIC MOST OF THE NIGHT. TMAX 103.6, MED WITH TYLENOL AND ASA TN. BLANKETS REMOVED AND ICE APPLIED TO PT. TEMP DOWN TO 100.0, BUT NOW CLIMBING BACK UP. PT MED WITH TYLENOL AND ICE PACKS REAPPLIED. PT ASKING QUESTIONS THIS MORNING ABOUT WHY HE IS HERE AND HOW LONG HE HAS BEEN HERE. SPEECH CLEARER THIS AM. INSLIN GTT CURRENTLY AT 2 UNITS, CONT TO CHECK BLOOD GLUCOSE Q1HR. PT INCONT OF STOOL ONCE DURING THE NIGHT. RECTAL TEMP PROBE PLACED FOR ACCURATE READING. REPORT TO ON COMING NURSE
--- NOTE | 2019-03-09 07:51 | NUR ---
START OF SHIFT NOTE: RECEIVED REPORT FROM MADHU LU RN, ASSUMED CARE, PATIENT IS AWAKE, AND MUMBLING SOME INCOHERENT WORDS, TEMP IS 102.2, WHEN ASKED HOW HE WAS FEELING, PATIENT STATED "NOT SO GOOD", BUT IS UNABLE TO TELL ME WHY HE IS NOT FEELING SO GOOD, PATIENT IS ON INSULIN GTT AT 1 UNIT, ON PROTONIX AT 10 CC/HR, POTASSIUM CHLORIDE INFUSING, ZOSYN INFUSING AND D5 1/2 NS ALSO INFUSING, PATIENT RECEIVED TYLENOL SUPPOSITORIES FOR TEMP WELL IBUPROFEN FROM SUPERVISOR CLAM BED, HAS RECTAL PROBE IN PLACE, MOSTLY CONFUSED AT THIS TIME, LUNG SOUNDS ARE VERY DIMINISHED, SR, BOWEL TONES HYPOACTIVE IN ALL FOUR QUADRANTS, ROLDAN CATHETER IN PLACE DRAINING CLEAR YELLOW URINE AT THIS TIME, PEDAL PULSES PALPABLE BUT FAINT/THREADY, CALL LIGHT IN REACH, WILL CONTINUE TO MONITOR.
--- NOTE | 2019-03-09 10:12 | NUR ---
PATIENT CONTINUES TO REST COMFORTABLY, APPEARS TO BE SLEEPING, TEMP DOWN TO 99.9, PATIENT STATED "I FEEL BETTER", REPOSITIONS SELF, CALL LIGHT IN REACH, WILL CONTINUE TO MONITOR.
--- NOTE | 2019-03-09 10:52 | NUR ---
DR. HICKEY IN TO SEE PATIENT, NEW ORDERS RECEIVED.
--- NOTE | 2019-03-09 12:05 | NUR ---
REPORT WAS CALLED TO ONEIDA KHAN, MEDICAL FLOOR, PATIENT WILL BE TRANSFERRED TO ROOM 329 VIA BED WITH ALL BELONGINGS AND MEDICATIONS.
--- NOTE | 2019-03-09 14:10 | NUR ---
PATIENT TO THE FLOOR FROM ICU IN THE 1200 HOUR. PLEASANT, WAKING UP. HE IS EATING AND SPOKE WITH DR. HICKEY. ROLDAN TO BE REMOVED. PATIENT IS ABLE TO FEED HIMSELF AND HAS BEEN MORE AWAKE SINCE COMING TO THE FLOOR. THE PATIENT STATES "I AM COMING TO MORE AND MORE, BUT STILL DON'T FEEL GREAT".
--- NOTE | 2019-03-09 18:00 | NUR ---
SHIFT SUMMARY PATIENT IS PLEASANT WHEN HE WILL WAKE UP. NO ACUTE CONCERNS AT THIS TIME. PATIENT HAS BEEN MILDLY OBTUNDED. THIS HAS BEEN SPOKEN TO DR. HICKEY ABOUT. PATIENT IS WAKING UP MILDLY. HIS ROLDAN HAS BEEN REMOVED.
--- NOTE | 2019-03-09 22:43 | NUR ---
PT IS SOMNOLENT, EASY TO AROUSE BUT ALSO FALLS BACK TO SLEEP EASILY. BLOOD PRESSURE WAS 184/88 AT 1924. LISINOPRIL, LOPRESSOR GIVEN PO. BP RE-ASSESSED AND WAS 181/77. HOSPITALIST- QING WAS CALLED AND NOTIFIED OF PT'S BLOOD PRESSURE. BECAUSE PT HAS BEEN HYPOTENTSIVE BEFORE AND LISINOPRIL IS A NEW ORDER, QING STATED IT WILL TAKE SOME TIME FOR NEW MEDS TO KICK IN. NO NEW ORDERS WERE GIVEN DUE TO HIS HYPOTENSIVE STATES BEFORE. PT DENIED ANY SYMPTOMS AND NO DISTRESS NOTED.
--- NOTE | 2019-03-10 00:43 | NUR ---
DR. WALL NOTIFIED OF PT RETAINING URINE AFTER BLADDER SCANNING. BLADDER SCAN SHOWED OVER 999 ML. PT UNABLE TO VOID. ROLDAN ORDERED PER KRISTINE.
--- NOTE | 2019-03-10 00:49 | NUR ---
URINARY CATHETER INSERTION PT UNABLE TO VOID. BLADDER SCAN REVEALS VALUE >999 ML. MIGUEL, RN [place], NOTIFIED KRISTINE RIZZO. ORDERS FOR ROLDAN CATH NOW. THIS RN ASSISTED MIGUEL IN ROLDAN CATHETERIZATION. STERILE TECHNIQUE MAINTAINED. URINE SPECIMEN SENT TO LAB. PT HAS HAD 800 ML OUT SO FAR.
[2019-03-10 01:44] LABS: Source, Urine Catheter
[2019-03-10 01:52] LABS: Bilirubin, Urine Neg (Neg); Blood, Urine 5+ (Neg); Glucose Qualitative, Urine 4+ (Neg); Ketones, Urine 4+ (Neg); Leukocyte Esterase, Urine Neg (Neg); Nitrite, Urine Neg (Neg); Protein, Urine 3+ (Neg); Specific Gravity, Urine 1.015 (1.003-1.022); Urobilinogen, Urine NORM (Normal)
[2019-03-10 02:07] LABS: Appearance, Urine Clear (Clear); Bacteria Not Seen /hpf; Color, Urine Yellow (P-Yellow); Mucus Light (0-Heavy); Squamous Epithelial Cells Not Seen /hpf (Few); White Blood Cells, Urine 0-2 /hpf (0-5)
[2019-03-10 02:08] LABS: Amorphous Light (0-Heavy); Granular Casts 0-2 /lpf (0)
--- NOTE | 2019-03-10 05:01 | NUR ---
RF TECHNICIAN SUMMARY PT HAVE BEEN SOMNOLENT THIS ENTIRE SHIFT. EASILY AROUSABLE AND ALSO FALLS ASLEEP EASILY. PT ANSWERS QUESTIONS VERY SLOW AND STAFF NEEDS TO REPEAT QUESTIONS A FEW TIMES FOR PT TO ANSWER. STAYED AT BEDSIDE FOR THE NIGHT AND STATED THAT HIS MENTAL STATUS IS FAR FROM HIS BASELINE. ROLDAN PATENT AND DRAINING CLEAR YELLOW URINE ABOUT 1,500 ML SINCE IT WAS PUT IN. SEE PREVIOUS NOTE. BP HAS COME DOWN TO 171/70 THIS MORNING FROM 181/77. SEE PREVIOUS NOTE ABOUT BLOOD PRESSURE. WILL CONTINUE TO MONITOR.
[2019-03-10 05:03] LABS: BASOPHILS PERCENT AUTO 0 % (0-2); EOSINOPHILS ABSOLUTE AUTO 0.01 K/mm3 (0.00-0.68); EOSINOPHILS PERCENT AUTO 0 % (0-6); Hematocrit 36.1 % (37.0-53.0); Hemoglobin 12.2 g/dL (13.5-17.5); IMMATURE GRAN ABSOLUTE AUTO 0.02 K/mm3 (0.00-0.10); IMMATURE GRAN PERCENT AUTO 0 % (0-1); LYMPHOCYTES PERCENT AUTO 16 % (21-46); MONOCYTES ABSOLUTE AUTO 0.75 K/mm3 (0.16-1.47); MONOCYTES PERCENT AUTO 12 % (4-13); Mean Corpuscular HGB 29.5 pg (26.0-34.0); Mean Corpuscular HGB Conc 33.8 g/dL (31.5-36.5); Mean Corpuscular Volume 87 fL (80-100); Mean Platelet Volume 10.2 fL (9.1-12.4); NEUTROPHILS ABSOLUTE AUTO 4.39 K/mm3 (1.96-9.15); NEUTROPHILS PERCENT AUTO 71 % (41-73); Platelet Count 164 K/mm3 (150-400); RDW Coefficient Variation 12.1 % (11.7-14.2); Red Blood Cell Count 4.13 M/mm3 (4.30-5.90); White Blood Cell Count 6.17 K/mm3 (4.00-11.30)
[2019-03-10 05:52] LABS: Anion Gap 7 mmol/L (6-16); Blood Urea Nitrogen 7 mg/dL (8-24); Bun/Creatinine Ratio 22.9 (12.0-20.0); CO2, Blood 26 mmol/L (21-32); Calcium, Blood 8.8 mg/dL (8.5-10.1); Chloride, Blood 104 mmol/L (98-108); Creatinine, Blood 0.31 mg/dL (0.60-1.20); Glomerular Filtration Rate >60 (60-); Glucose, Blood 136 mg/dL (70-99); Potassium, Blood 2.9 mmol/L (3.5-5.5); Sodium, Blood 137 mmol/L (136-145)
--- NOTE | 2019-03-10 06:32 | NUR ---
HYPOKALEMIA CALL PLACE TO DR AMATO TO REPORT K+ 2.9 WITH AM LABS. ORDERS KCL 40 MEQ IV X1 BAG.
--- NOTE | 2019-03-10 18:13 | NUR ---
PATIENT A/O TO SELF AND FAMILY. VERY UNSTEADY OF HIS FEET TODAY, UP WITH 2 MAX ASSIST TO CHAIR THIS AFTERNOON. THIS EVENING PATIENT WAS TOO UNSTEADY TO MOVE SAFELY, LEGS BUCKLING AND PATIENT NEARLY FELL. FALL PRECAUTIONS IN PLACE PER UNIT PROTOCOL. PATIENT HAS GOOD BED MOBILITY. PATIENT STATES THAT HE FALLS OFTEN AT HOME, HE REPORTS ABOUT 6 TIMES A MONTH. ZOSYN D/C'D TODAY, DOCTOR'S NOTE SAID THAT HE WOULD BE STARTED ON PO ABX. VSS, ON RA. ACHS BLOOD SUAGES, COVERAGE NEEDED X1 TODAY. MULTIPLE SOFT BM'S TODAY. ROLDAN TO GRAVITY DUE TO RETENTION. SKIN INTACT.
[2019-03-11 04:29] LABS: Anion Gap 6 mmol/L (6-16); Blood Urea Nitrogen 7 mg/dL (8-24); Bun/Creatinine Ratio 30.2 (12.0-20.0); CO2, Blood 30 mmol/L (21-32); Calcium, Blood 8.6 mg/dL (8.5-10.1); Chloride, Blood 101 mmol/L (98-108); Creatinine, Blood 0.23 mg/dL (0.60-1.20); Glomerular Filtration Rate >60 (60-); Glucose, Blood 151 mg/dL (70-99); Potassium, Blood 2.9 mmol/L (3.5-5.5); Sodium, Blood 137 mmol/L (136-145)
--- NOTE | 2019-03-11 06:05 | NUR ---
SHIFT SUMMARY NO ACUTE CHANGES OVERNIGHT. PT MENTATION HAS SIGNIFICANTLY IMPROVED COMPARED TO LAST NIGHT. PT A&OX4, IS DROWSY AT TIMES. AT BEDSIDE MAJORITY OF NIGHT. ROLDAN CATH IN PLACE FOR RETENTION, HANGING WITH GRAVITY , DRAINING CLEAR YELLOW URINE. CBG WAS 247 LAST NIGHT, IN NORMAL RANGE THIS AM PER LAB. DENIES PAIN. COMPLAINS OF NAUSEA, RESOLVED BY PO REGLAN. HAD LARGE BM IN BEDPAN. WILL CONT TO MONITOR AND PROVIDE CARE UNTIL PRESUMED BY ONCOMING RN.
--- NOTE | 2019-03-11 06:14 | NUR ---
HYPOKALEMIA K+ 2.[address] AMATO, ORDERS 40 MEQ IV KCL NOW. ORDER PENDING PER PHARMACY.
[2019-03-11 11:49] LABS: Source, Urine Catheter
[2019-03-11 12:07] LABS: Bilirubin, Urine Neg (Neg); Blood, Urine 3+ (Neg); Glucose Qualitative, Urine 4+ (Neg); Ketones, Urine 3+ (Neg); Leukocyte Esterase, Urine 2+ (Neg); Nitrite, Urine Neg (Neg); Protein, Urine 2+ (Neg); Specific Gravity, Urine 1.015 (1.003-1.022); Urobilinogen, Urine 1+ (Normal)
[2019-03-11 12:09] LABS: Appearance, Urine Clear (Clear); Color, Urine Yellow (P-Yellow)
[2019-03-11 12:13] LABS: Squamous Epithelial Cells Not Seen /hpf (Few)
[2019-03-11 12:14] LABS: Bacteria Few /hpf
--- NOTE | 2019-03-11 15:58 | NUR ---
ORTHOSTATIC VITALS LYIN/57 SITTIN/57 STANDIN/41 DR. HICKEY NOTIFED AND METOPROLOL DOSE DECREASED TO 12.5MG BID AND LISINOPRIL D/C'D.
--- NOTE | 2019-03-11 17:40 | NUR ---
PATIENT A/OX4, CALM AND COOPERATIVE WITH CARE. TOLERATING DIET WELL. ACHS BLOOD SUGARS, COVERAGE PER SS AND LANTUS. PT EVAL TODAY, PATIENT WITH ORTHOSTATIC HYPOTENSION, SEE NOTE. BLOOD PRESSURE MEDICATION ADJUSTED TODAY. ROLDAN TO GRAVITY, FLOMAX STARTED TODAY. INCONTINENT OF BOWEL WITH MULTIPLE SOFT BM'S TODAY. AT BEDSIDE FOR MOST OF THE DAY. DENIES ANY PAIN. SKIN INTACT. PT RECOMMEDNING SNF AT D/C FOR STRENGTHENING.
[2019-03-12 06:33] LABS: BASOPHILS ABSOLUTE AUTO 0.02 K/mm3 (0.00-0.23); BASOPHILS PERCENT AUTO 0 % (0-2); EOSINOPHILS ABSOLUTE AUTO 0.08 K/mm3 (0.00-0.68); EOSINOPHILS PERCENT AUTO 2 % (0-6); Hematocrit 39.1 % (37.0-53.0); Hemoglobin 13.1 g/dL (13.5-17.5); IMMATURE GRAN ABSOLUTE AUTO 0.02 K/mm3 (0.00-0.10); IMMATURE GRAN PERCENT AUTO 0 % (0-1); LYMPHOCYTES PERCENT AUTO 17 % (21-46); MONOCYTES ABSOLUTE AUTO 0.71 K/mm3 (0.16-1.47); MONOCYTES PERCENT AUTO 13 % (4-13); Mean Corpuscular HGB 29.4 pg (26.0-34.0); Mean Corpuscular HGB Conc 33.5 g/dL (31.5-36.5); Mean Corpuscular Volume 88 fL (80-100); Mean Platelet Volume 10.1 fL (9.1-12.4); NEUTROPHILS ABSOLUTE AUTO 3.68 K/mm3 (1.96-9.15); NEUTROPHILS PERCENT AUTO 68 % (41-73); Platelet Count 182 K/mm3 (150-400); RDW Coefficient Variation 11.6 % (11.7-14.2); RDW Standard Deviation 37.4 fL (35.1-46.3); Red Blood Cell Count 4.45 M/mm3 (4.30-5.90); White Blood Cell Count 5.41 K/mm3 (4.00-11.30)
[2019-03-12 06:52] LABS: Anion Gap 8 mmol/L (6-16); Blood Urea Nitrogen 12 mg/dL (8-24); CO2, Blood 27 mmol/L (21-32); CPK Creatine Kinase 42 U/L (39-308); Calcium, Blood 8.9 mg/dL (8.5-10.1); Chloride, Blood 101 mmol/L (98-108); Creatinine, Blood 0.29 mg/dL (0.60-1.20); Glomerular Filtration Rate >60 (60-); Glucose, Blood 206 mg/dL (70-99); Potassium, Blood 3.8 mmol/L (3.5-5.5); Sodium, Blood 136 mmol/L (136-145)
--- NOTE | 2019-03-12 18:21 | NUR ---
PT. SITTING IN BED EATING DINNER, NO NOTEABLE CHANGES THIS SHIFT. HAS BEEN UP TO THE CHAIR FOR BKFST AND LUNCH WITH ASSIST. BLOOD SUGARS HAVE BEEN FAIRLY HIGH THIS SHIFT. PT. HAS BEEN PLEASANT AND COOPERATIVE T/O THE SHIFT.
--- NOTE | 2019-03-12 18:58 | NUR ---
PT. SPOUSE ARRIVED AT 1850, BUT GONE FOR THE DAY. SPOUSE DOES NOT PT. GOING TO [facility] FOR REHAB. PT. INSURANCE HAS TO HAVE A PRIOR AUTHORIZATION BEFORE THEY WILL PAY. SPOUSES CELL NUMBER IS ON BOARD FOR SS TO CALL IN THE MORNING.
[2019-03-12] MEDS ORDERED: LUMIGAN2.5 ML BOTHEYES (20:51)
--- NOTE | 2019-03-12 22:30 | NUR ---
PT'S BROUGHT IN NEW EYE GTTS AND UPDATED HOME MED REC. ALERTED W/ DEDE EYE GTTS RX'D AND MARGIE EYE GTTS DC'D.
--- NOTE | 2019-03-13 06:20 | NUR ---
SUMMARY: A/OX4, CALLS APPROPRIATELY AND SPECIFIES NEEDS. HE WAS ASSISTED W/ REPOSITIONING AND ATTENDS CHANGED PRN. JAMAR IS PATENT AND DRAINING AND HAS LARGE AMT OF UO. PT WASN'T OOB THIS SHIFT BUT WAS UP W/2PA AND GAIT W/FWW. BOTTOM IS PINK AND LOTION APPLIED PRN. BM'S HAVE SLOWED. BROUGHT IN NEW EYE GTTS W/MED REC UPDATED AND NEW MED RX'D. HEELS REMAIN FLOATED AND TURN SCHEDULE MAINTAINED. HE'S DENIED PAIN AND ALL OTHER COMPLAINTS. NO ACUTE CHANGES, VSS/AFEBRILE. PT WILL POSSIBLY D/C TO A SNF TODAY PENDING BED AVAILABILITY. PT AND DO NOT WANT TO GO TO [facility] AND PREFER [facility] REH[facility]. WILL ENSURE DAY STAFF ARE AWARE. WCTM AND REPORT TO DAY RN.
--- NOTE | 2019-03-13 19:22 | NUR ---
PT. UP IN CHAIR FOR DINNER. PT. APPEARS TO BE STONGER WHEN AMBULATING. BLADDER TRAINED PT. FIRST PART OF SHIFT AND DC'D HIS CATHETER AROUND 1355, HAS VOIDED 400 CC OF CLEAR YELLOW URINE SINCE REMOVAL. REPORTED TO YARN CLEANER THEY NEEDED TO KEEP TRACK OF HIS URINE TO MAKE SURE HE IS EMPTYING HIS BLADDER. POSSIBLE DISCHARGE TO [facility] TOMORROW.
--- NOTE | 2019-03-14 03:32 | NUR ---
SCENE SHIFTER SUMMARY PT A/O X4. PLEASANT AND COOPERATIVE, CALLS APPROPRIATELY. PT HAS BEEN VOIDING EVERY 2-3 HOURS BTW 300-600'S OF CLEAR YELLOW URINE. PT ALSO HAD A SMALL FORMED BM TODAY. STANDBY ASSIST WITH FWW AND HAVE BEEN DOING WELL. DENIED PAIN, NAUSEA, DIZZNIESS. VSS, NO ACUTE CHANGES, WILL CONTINUE TO MONITOR.
[2019-03-14] MEDS ORDERED: Acetaminophen325 M1 PO (11:03)
[2019-03-14] MEDS ORDERED: Amoxicillin500 MG PO (11:05)
[2019-03-14] MEDS ORDERED: BISA5EC PO (11:05)
[2019-03-14] MEDS ORDERED: Culturelle1 CAP PO (11:10)
[2019-03-14] MEDS ORDERED: METO10 PO (11:11)
[2019-03-14] MEDS ORDERED: MIDO5 PO (11:14)
[2019-03-14] MEDS ORDERED: PANT20 PO (11:17)
[2019-03-14] MEDS ORDERED: LUMIGAN2.5 ML BOTHEYES (11:17)
[2019-03-14] MEDS ORDERED: Sen-O-Tab8.6 MG PO (11:18)
[2019-03-14] MEDS ORDERED: TAMS.4ER PO (11:18)
--- NOTE | 2019-03-14 12:00 | NUR ---
ASSUMED CARE OF PT AFTER MY CLASS FINISHED. PT. A&O VOIDING WELL READY TO GO HOME
--- NOTE | 2019-03-14 17:10 | NUR ---
PT. DISCHARGED HOME WITH SPOUSE. VERBALIZED UNDERSTANDING OG INSTRUCTIONS AND MEDS. HOME MEDS RETURNED TO PT.
== END 2019-03-14 17:22 | disposition home health service (06) | DRG 871 ==
LOC: ER 14:50 → ICUW 17:00 → MEDS 03-09 12:13 → ENPENDDIS 03-14 09:30 → MEDS 03-14 17:22
PROVIDERS: Internal Medicine; Nurse Practitioner Acute Care; Physician Assistant; ADMIT Internal Medicine
DX: A40.1 Sepsis due to streptococcus, group B (principal); E11.10 Type 2 diabetes mellitus with ketoacidosis without coma; G92 Toxic encephalopathy; N39.0 Urinary tract infection, site not specified; K92.0 Hematemesis; E44.0 Moderate protein-calorie malnutrition; I10 Essential (primary) hypertension; I95.1 Orthostatic hypotension; E87.6 Hypokalemia; R29.6 Repeated falls; D63.8 Anemia in other chronic diseases classified elsewhere; E11.40 Type 2 diabetes mellitus with diabetic neuropathy, unspecified; E78.5 Hyperlipidemia, unspecified; I25.10 Atherosclerotic heart disease of native coronary artery without angina pectoris; I25.2 Old myocardial infarction; Z95.1 Presence of aortocoronary bypass graft; Z95.5 Presence of coronary angioplasty implant and graft; Z87.891 Personal history of nicotine dependence; Z79.02 Long term (current) use of antithrombotics/antiplatelets; Z79.82 Long term (current) use of aspirin; Z79.4 Long term (current) use of insulin; Z79.899 Other long term (current) drug therapy
CPT/HCPCS: 0099U; 36415; 51702; 71045; 74018; 80048; 80053; 81001; 82550; 82803; 82947; 83605; 83690; 84484; 85025; 87040; 87086; 87147; 96361; 96374; 96375; 96376; 97110; 97163; 97530; 99285-25; A9270; A9270-GY; C9113; J1815; J2405; J2543; J2765; J3480; J7030; J7040; J7042; J7120

== ENCOUNTER 2019-03-23 01:30 | Emergency (ER) | payer OTHER ==
[~2019-03-23] VITALS: Ht 182.9 cm; Wt 74.8 kg
[~2019-03-23 01:30] MED LIST changes: +Acetaminophen325 M1 PO; +Amoxicillin500 MG PO; +Aspir 8181 MG PO; +BISA5EC PO; +CLOP75 PO; +Culturelle1 CAP PO; +Humalog100 UNIT/3 SC; +INSDET100 SC; +Isosorbide Mono60 MG PO; +Lisinopril2.5 MG PO; +METO10 PO; +METO25 PO; +MIDO5 PO; +PANT20 PO; +Prozac20 MG PO; +SIMBRINZA 1%-0.28 ML BOTHEYES; +SIMV40 PO; +Sen-O-Tab8.6 MG PO; +TAMS.4ER PO; +TIMO.5OPSO BOTHEYES
[2019-03-23] MEDS ORDERED: ISODIN10 PO (02:15)
[2019-03-23] MEDS ORDERED: LISI5 PO (02:15)
== END 2019-03-23 02:30 | disposition home or self-care (01) ==
LOC: ER 01:30
DX: I95.9 Hypotension, unspecified (principal); I25.2 Old myocardial infarction; Z95.5 Presence of coronary angioplasty implant and graft; Z87.891 Personal history of nicotine dependence
CPT/HCPCS: 93005; 93010; 99284-25

== ENCOUNTER 2019-07-19 00:13 | Day surgery (SDC) | payer OTHER ==
[~2019-07-19 00:13] MED LIST changes: +ISODIN10 PO; +LISI5 PO
== END 2019-07-19 22:43 | disposition home or self-care (01) ==
LOC: WOUND 00:13
DX: E11.621 Type 2 diabetes mellitus with foot ulcer (principal); L97.509 Non-pressure chronic ulcer of other part of unspecified foot with unspecified severity; Z53.21 Procedure and treatment not carried out due to patient leaving prior to being seen by health care provider
CPT/HCPCS: G0463

== ENCOUNTER 2019-07-19 10:27 | Emergency (ER) | payer OTHER ==
[~2019-07-19] VITALS: Ht 182.9 cm; Wt 85.7 kg
[2019-07-19 12:41] LABS: BASOPHILS ABSOLUTE AUTO 0.01 K/mm3 (0.00-0.23); BASOPHILS PERCENT AUTO 0 % (0-2); EOSINOPHILS ABSOLUTE AUTO 0.14 K/mm3 (0.00-0.68); EOSINOPHILS PERCENT AUTO 2 % (0-6); Hematocrit 37.5 % (37.0-53.0); IMMATURE GRAN ABSOLUTE AUTO 0.03 K/mm3 (0.00-0.10); IMMATURE GRAN PERCENT AUTO 0 % (0-1); LYMPHOCYTES ABSOLUTE AUTO 1.62 K/mm3 (0.84-5.20); LYMPHOCYTES PERCENT AUTO 20 % (21-46); MONOCYTES PERCENT AUTO 6 % (4-13); Mean Corpuscular HGB 28.2 pg (26.0-34.0); Mean Corpuscular Volume 88 fL (80-100); Mean Platelet Volume 11.2 fL (9.1-12.4); NEUTROPHILS ABSOLUTE AUTO 6.02 K/mm3 (1.96-9.15); NEUTROPHILS PERCENT AUTO 72 % (41-73); Platelet Count 237 K/mm3 (150-400); RDW Standard Deviation 41.3 fL (35.1-46.3); Red Blood Cell Count 4.26 M/mm3 (4.30-5.90); White Blood Cell Count 8.32 K/mm3 (4.00-11.30)
[2019-07-19 12:48] LABS: Base Excess Venous 3.2 mmol/L; Bicarbonate Venous 27.1 mmol/L (24.0-30.0); PCO2 Venous 37.7 mmHg (38-42); PO2 Venous 66.3 mmHg (38-42); pH Blood Venous 7.46 (7.34-7.37)
[2019-07-19 12:53] LABS: Alanine Aminotransfer (ALT/SGP 25 U/L (12-78); Albumin, Blood 3.2 g/dL (3.4-5.0); Albumin/Globulin Ratio 0.8 (0.8-1.8); Alk Phos 73 U/L (50-136); Anion Gap 4 mmol/L (6-16); Aspartate Aminotrans (AST/SGOT 22 U/L (12-37); Bilirubin, Total 0.4 mg/dL (0.1-1.0); Blood Urea Nitrogen 34 mg/dL (8-24); CO2, Blood 29 mmol/L (21-32); Calcium, Blood 9.5 mg/dL (8.5-10.1); Chloride, Blood 101 mmol/L (98-108); Creatinine, Blood 0.81 mg/dL (0.60-1.20); Globulin, Blood 3.9 g/dL (2.2-4.0); Glomerular Filtration Rate >60 (60-); Glucose, Blood 275 mg/dL (70-99); Potassium, Blood 4.7 mmol/L (3.5-5.5); Sodium, Blood 134 mmol/L (136-145); Total Protein, Blood 7.1 g/dL (6.4-8.2); Troponin I <0.015 ng/mL (0.000-0.040)
== END 2019-07-19 15:04 | disposition home or self-care (01) ==
LOC: ER 10:27
PROVIDERS: Emergency Medicine
DX: L89.629 Pressure ulcer of left heel, unspecified stage (principal); E11.42 Type 2 diabetes mellitus with diabetic polyneuropathy; I95.9 Hypotension, unspecified; R55 Syncope and collapse; I25.2 Old myocardial infarction; I25.10 Atherosclerotic heart disease of native coronary artery without angina pectoris; E78.5 Hyperlipidemia, unspecified; Z87.891 Personal history of nicotine dependence; Z79.82 Long term (current) use of aspirin; Z79.899 Other long term (current) drug therapy; Z79.4 Long term (current) use of insulin; Z88.8 Allergy status to other drugs, medicaments and biological substances
CPT/HCPCS: 80053; 82803; 84484; 85025; 86850; 86900; 86901; 93005; 93010; 99284-25; J7030

== ENCOUNTER 2019-07-24 00:25 | Day surgery (SDC) | payer OTHER | END 2019-07-24 22:50 | disposition home or self-care (01) | LOC: WOUND 00:25 | DX: E11.621 Type 2 diabetes mellitus with foot ulcer (principal); L97.519 Non-pressure chronic ulcer of other part of right foot with unspecified severity; L97.421 Non-pressure chronic ulcer of left heel and midfoot limited to breakdown of skin; I10 Essential (primary) hypertension; E78.5 Hyperlipidemia, unspecified; Z88.8 Allergy status to other drugs, medicaments and biological substances | CPT/HCPCS: G0463 ==

== ENCOUNTER 2019-08-06 00:24 | Day surgery (SDC) | payer OTHER | END 2019-08-06 22:38 | disposition home or self-care (01) | LOC: WOUND 00:24 | DX: E11.621 Type 2 diabetes mellitus with foot ulcer (principal); L97.519 Non-pressure chronic ulcer of other part of right foot with unspecified severity; E11.40 Type 2 diabetes mellitus with diabetic neuropathy, unspecified; L97.421 Non-pressure chronic ulcer of left heel and midfoot limited to breakdown of skin; Z79.4 Long term (current) use of insulin; I10 Essential (primary) hypertension; E78.5 Hyperlipidemia, unspecified; Z79.82 Long term (current) use of aspirin; Z79.02 Long term (current) use of antithrombotics/antiplatelets; Z79.899 Other long term (current) drug therapy ==

== ENCOUNTER 2019-08-08 00:19 | Day surgery (SDC) | payer OTHER | END 2019-08-08 22:41 | disposition home or self-care (01) | LOC: WOUND 00:19 | DX: E11.621 Type 2 diabetes mellitus with foot ulcer (principal); L97.421 Non-pressure chronic ulcer of left heel and midfoot limited to breakdown of skin; L97.519 Non-pressure chronic ulcer of other part of right foot with unspecified severity; Z79.82 Long term (current) use of aspirin; Z79.02 Long term (current) use of antithrombotics/antiplatelets; Z79.4 Long term (current) use of insulin ==

== ENCOUNTER 2019-08-13 00:21 | Day surgery (SDC) | payer OTHER | END 2019-08-13 22:45 | disposition home or self-care (01) | LOC: WOUND 00:21 | DX: E11.621 Type 2 diabetes mellitus with foot ulcer (principal); L97.422 Non-pressure chronic ulcer of left heel and midfoot with fat layer exposed; L97.412 Non-pressure chronic ulcer of right heel and midfoot with fat layer exposed; E78.5 Hyperlipidemia, unspecified; I10 Essential (primary) hypertension ==

== ENCOUNTER → 2019-08-25 | Outpatient (CLI) | payer OTHER ==
[2019-08-25 18:09] LABS: Adenovirus F 40/41 Not Detected (NOT DETECT); Astrovirus Not Detected (NOT DETECT); Campylobacter Sp Not Detected (NOT DETECT); Cryptosporidium Not Detected (NOT DETECT); Cyclospora Cayetanensis Not Detected (NOT DETECT); E. Coli O157 Not Detected (NOT DETECT); Entamoeba Histolytica Not Detected (NOT DETECT); Enteroaggregative E. coli-EAEC Not Detected (NOT DETECT); Enteropathogenic E. coli-EPEC Not Detected (NOT DETECT); Enterotoxigenic E. coli-ETEC Not Detected (NOT DETECT); Giardia Lamblia Not Detected (NOT DETECT); Norovirus GI/GII Not Detected (NOT DETECT); Plesiomonas Shigelloides Not Detected (NOT DETECT); Rotavirus A Not Detected (NOT DETECT); Salmonella Sp Not Detected (NOT DETECT); Sapovirus Not Detected (NOT DETECT); Shiga Toxin-prod E. coli-STEC Not Detected (NOT DETECT); Shigella/Enteroin E. coli-EIEC Not Detected (NOT DETECT); Vibrio Cholerae Not Detected (NOT DETECT); Vibrio Sp Not Detected (NOT DETECT); Yersinia Enterocolitica Not Detected (NOT DETECT)
== END | disposition home or self-care (01) ==
LOC: LAB 11:45 → LAB SHORT 11:45 → LAB FUT 08-02 15:10
PROVIDERS: Family Medicine
DX: R19.7 Diarrhea, unspecified (principal)
CPT/HCPCS: 0097U; 87324

== ENCOUNTER 2019-08-29 00:26 | Day surgery (SDC) | payer OTHER | END 2019-08-29 22:53 | disposition home or self-care (01) | LOC: WOUND 00:26 | DX: E11.621 Type 2 diabetes mellitus with foot ulcer (principal); L97.519 Non-pressure chronic ulcer of other part of right foot with unspecified severity; L97.421 Non-pressure chronic ulcer of left heel and midfoot limited to breakdown of skin; M79.672 Pain in left foot; E78.5 Hyperlipidemia, unspecified; I10 Essential (primary) hypertension; Z79.4 Long term (current) use of insulin; Z79.899 Other long term (current) drug therapy ==

== ENCOUNTER 2019-09-03 00:41 | Day surgery (SDC) | payer OTHER | END 2019-09-03 22:50 | disposition home or self-care (01) | LOC: WOUND 00:41 | DX: E11.621 Type 2 diabetes mellitus with foot ulcer (principal); L97.519 Non-pressure chronic ulcer of other part of right foot with unspecified severity; E78.5 Hyperlipidemia, unspecified; I10 Essential (primary) hypertension; Z79.4 Long term (current) use of insulin; Z79.899 Other long term (current) drug therapy ==

== ENCOUNTER 2019-09-10 00:33 | Day surgery (SDC) | payer OTHER | END 2019-09-10 23:11 | disposition home or self-care (01) | LOC: WOUND 00:33 | DX: E11.621 Type 2 diabetes mellitus with foot ulcer (principal); L97.519 Non-pressure chronic ulcer of other part of right foot with unspecified severity; I10 Essential (primary) hypertension; E78.5 Hyperlipidemia, unspecified; I25.10 Atherosclerotic heart disease of native coronary artery without angina pectoris; I21.4 Non-ST elevation (NSTEMI) myocardial infarction | CPT/HCPCS: G0463 ==

== ENCOUNTER 2019-09-18 17:23 | Inpatient (IN) | payer OTHER ==
[~2019-09-18] VITALS: Ht 182.9 cm; Wt 80.0 kg
[~2019-09-18 17:23] MED LIST changes: -Aspir 8181 MG PO; -CLOP75 PO; -Humalog100 UNIT/3 SC; -INSDET100 SC; -ISODIN10 PO; -LISI5 PO; -METO25 PO; -Prozac20 MG PO; -SIMV40 PO; -TIMO.5OPSO BOTHEYES
[2019-09-18 18:13] LABS: BASOPHILS ABSOLUTE AUTO 0.01 K/mm3 (0.00-0.23); BASOPHILS PERCENT AUTO 0 % (0-2); EOSINOPHILS ABSOLUTE AUTO 0.09 K/mm3 (0.00-0.68); EOSINOPHILS PERCENT AUTO 1 % (0-6); Hematocrit 39.5 % (37.0-53.0); Hemoglobin 12.6 g/dL (13.5-17.5); IMMATURE GRAN ABSOLUTE AUTO 0.06 K/mm3 (0.00-0.10); IMMATURE GRAN PERCENT AUTO 0 % (0-1); LYMPHOCYTES PERCENT AUTO 15 % (21-46); MONOCYTES ABSOLUTE AUTO 1.38 K/mm3 (0.16-1.47); MONOCYTES PERCENT AUTO 10 % (4-13); Mean Corpuscular HGB 27.4 pg (26.0-34.0); Mean Corpuscular HGB Conc 31.9 g/dL (31.5-36.5); Mean Corpuscular Volume 86 fL (80-100); Mean Platelet Volume 10.5 fL (9.1-12.4); NEUTROPHILS ABSOLUTE AUTO 9.94 K/mm3 (1.96-9.15); NEUTROPHILS PERCENT AUTO 74 % (41-73); Platelet Count 173 K/mm3 (150-400); RDW Coefficient Variation 13.9 % (11.7-14.2); RDW Standard Deviation 43.8 fL (35.1-46.3); White Blood Cell Count 13.48 K/mm3 (4.00-11.30)
[2019-09-18 18:42] LABS: Ethanol (Alcohol), Blood, Med <3 mg/dL; Magnesium, Blood 1.7 mg/dL (1.6-2.4)
[2019-09-18 18:45] LABS: Alanine Aminotransfer (ALT/SGP 19 U/L (12-78); Albumin, Blood 3.2 g/dL (3.4-5.0); Albumin/Globulin Ratio 0.9 (0.8-1.8); Alk Phos 57 U/L (50-136); Anion Gap 8 mmol/L (6-16); Aspartate Aminotrans (AST/SGOT 22 U/L (12-37); Bilirubin, Total 0.9 mg/dL (0.1-1.0); Blood Urea Nitrogen 35 mg/dL (8-24); Bun/Creatinine Ratio 41.7 (12.0-20.0); CO2, Blood 19 mmol/L (21-32); Calcium, Blood 8.8 mg/dL (8.5-10.1); Chloride, Blood 105 mmol/L (98-108); Creatinine, Blood 0.84 mg/dL (0.60-1.20); Globulin, Blood 3.6 g/dL (2.2-4.0); Glomerular Filtration Rate >60 (60-); Glucose, Blood 155 mg/dL (70-99); Potassium, Blood 3.7 mmol/L (3.5-5.5); Sodium, Blood 132 mmol/L (136-145); Total Protein, Blood 6.8 g/dL (6.4-8.2); Troponin I <0.015 ng/mL (0.000-0.040)
[2019-09-18] MEDS ORDERED: CLOP75 PO (19:59)
[2019-09-18] MEDS ORDERED: PREG300 PO (20:00)
[2019-09-18] MEDS ORDERED: SIMV40 PO (20:00)
[2019-09-18] MEDS ORDERED: METO25 PO (20:00)
[2019-09-18] MEDS ORDERED: Prozac20 MG PO (20:00)
[2019-09-18] MEDS ORDERED: Lisinopril2.5 MG PO (20:02)
[2019-09-18] MEDS ORDERED: Aspir 8181 MG PO (20:02)
[2019-09-18] MEDS ORDERED: Vancocin HCl125 MG PO (20:31)
[2019-09-18] MEDS ORDERED: LEVEMIR100 UNIT/1 SC (20:45)
[2019-09-18] MEDS ORDERED: NOVOLOG100 UNIT/2 SC (20:45)
[2019-09-18] MEDS ORDERED: TIMO.5OPSO BOTHEYES (20:46)
[2019-09-18] MEDS ORDERED: Isosorbide Mono60 MG PO (20:47)
[2019-09-18] MEDS ORDERED: LUMIGAN2.5 ML BOTHEYES (20:47)
--- NOTE | 2019-09-18 22:12 | NUR ---
REPORT RECIEVED FROM ANEESH GANDHI RN, AT 2210 AND AWAITING PT T/F TO ROOM 362. PT BEING ADMITTED FOR SEPSIS SECONDARY TO C.DIFF INFECTION.
[2019-09-18 22:52] LABS: Adenovirus F 40/41 Not Detected (NOT DETECT); Astrovirus Not Detected (NOT DETECT); Campylobacter Sp Not Detected (NOT DETECT); Cryptosporidium Not Detected (NOT DETECT); Cyclospora Cayetanensis Not Detected (NOT DETECT); E. Coli O157 Not Detected (NOT DETECT); Entamoeba Histolytica Not Detected (NOT DETECT); Enteroaggregative E. coli-EAEC Not Detected (NOT DETECT); Enteropathogenic E. coli-EPEC Not Detected (NOT DETECT); Enterotoxigenic E. coli-ETEC Not Detected (NOT DETECT); Giardia Lamblia Not Detected (NOT DETECT); Norovirus GI/GII Not Detected (NOT DETECT); Plesiomonas Shigelloides Not Detected (NOT DETECT); Rotavirus A Not Detected (NOT DETECT); Salmonella Sp Not Detected (NOT DETECT); Sapovirus Not Detected (NOT DETECT); Shiga Toxin-prod E. coli-STEC Not Detected (NOT DETECT); Shigella/Enteroin E. coli-EIEC Not Detected (NOT DETECT); Vibrio Cholerae Not Detected (NOT DETECT); Vibrio Sp Not Detected (NOT DETECT); Yersinia Enterocolitica Not Detected (NOT DETECT)
--- NOTE | 2019-09-19 03:00 | NUR ---
JENSEN RECIEVED AT 0228 FOR RELIEF OF NAUSEA.
--- NOTE | 2019-09-19 04:44 | NUR ---
SEBASTIAN RECIEVED PER PT REQUEST FOR C/O NAGGING R.ELBOW PAIN POST FALLING AT HOME PRIOR TO ADMISSION. HE REPORTS THAT HE WAS TOLD AN XRAY WOULD BE PERFORMED BUT WAS NEVER RX'D. WILL ENSURE DAY STAFF ARE AWARE TO FOLLOW UP.
[2019-09-19 04:49] LABS: BASOPHILS ABSOLUTE AUTO 0.01 K/mm3 (0.00-0.23); BASOPHILS PERCENT AUTO 0 % (0-2); Hematocrit 36.8 % (37.0-53.0); Hemoglobin 11.7 g/dL (13.5-17.5); LYMPHOCYTES ABSOLUTE AUTO 1.91 K/mm3 (0.84-5.20); LYMPHOCYTES PERCENT AUTO 18 % (21-46); MONOCYTES ABSOLUTE AUTO 1.16 K/mm3 (0.16-1.47); MONOCYTES PERCENT AUTO 11 % (4-13); Mean Corpuscular HGB 27.7 pg (26.0-34.0); Mean Corpuscular HGB Conc 31.8 g/dL (31.5-36.5); Mean Corpuscular Volume 87 fL (80-100); Mean Platelet Volume 10.8 fL (9.1-12.4); Platelet Count 143 K/mm3 (150-400); RDW Coefficient Variation 14.2 % (11.7-14.2); RDW Standard Deviation 45.4 fL (35.1-46.3); Red Blood Cell Count 4.22 M/mm3 (4.30-5.90); White Blood Cell Count 10.82 K/mm3 (4.00-11.30)
[2019-09-19 04:53] LABS: EOSINOPHILS ABSOLUTE AUTO 0.08 K/mm3 (0.00-0.68); EOSINOPHILS PERCENT AUTO 1 % (0-6); IMMATURE GRAN ABSOLUTE AUTO 0.03 K/mm3 (0.00-0.10); IMMATURE GRAN PERCENT AUTO 0 % (0-1); NEUTROPHILS ABSOLUTE AUTO 7.63 K/mm3 (1.96-9.15); NEUTROPHILS PERCENT AUTO 71 % (41-73)
--- NOTE | 2019-09-19 05:01 | NUR ---
SUMMARY: PT A/OX4, CALLS APPROPRIATELY AND PLEASANT/COOPERATIVE W/CARE. BED ALARM IS ARMED FOR OCCASIONAL IMPULSIVITY D/T FREQ DIARRHEA FROM PROBABLE C.DIFF INFECTION THAT WAS DIAGNOSED AN OUTPATIENT AND LIKELY PERSISTS. PT IS SBA W/FWW AND ADMITS TO CANE USE AT HOME D/T LEGS "BUCKLING" POST KNEE SX. HE WAS ON ORAL VANCO AT HOME AND DOSE HAS BEEN INCREASED UPON ADMISSION. PT ADMITTED W/SEPSIS AND IS ALSO RECIEVING IV FLAGYL AND LR AT 75 ML/HR. HE REPORTS INTERMITTENT NAUSEA W/ZOFRAN PROVIDED PRN FOR GOOD EFFECT. HE'D EXPERIENCED DIZZYNESS AND FALLS PRIOR TO ADMISSION BUT HAS DENIED ANY SYCOPAL EPISODES SINCE ARRIVAL TO FLOOR. CT'S/XRAYS WERE NEGATIVE BUT PT REPORTED INJURY TO HEAD, SHOULDER AND L.ELBOW DURING FALLS. TYLENOL PROVIDED PRN PER PT REQUEST FOR CONT'D PAIN TO THESE AREAS. HE DID ADMIT THAT IMAGING WASN'T YET PERFORMED ON HIS ELBOW, WILL HAVE DAY STAFF FOLLOW UP. ER MD ALSO MENTIONED RX'ING IMMODIUM OR SEQUESTRAN UPON STOOL SPEC COLLECTION BUT MEDS NOT YET ORDERED, WILL DISCUSS PROBABLE NEED W/DAY RN. VSS AND AFEBRILE BUT PT IS HYPOTENSIVE AT TIMES W/BP MEDS CURRENTLY ON HOLD. PT ADMITS TO POOR APPETITE W/POSSIBLE DEHDYRATION, IVF INFUSING AND HE'S TOLERATING CL DIET AT THIS TIME. HE HASN'T BEEN ABLE TO PROVIDE URINE SPECIMEN THIS SHIFT SO UA COLLECTION IS STILL REQUIRED, WILL ENSURE DAY STAFF ARE AWARE. NO ACUTE CHANGES. WCTM AND REPORT TO DAY RN.
[2019-09-19 05:08] LABS: Alanine Aminotransfer (ALT/SGP 15 U/L (12-78); Albumin, Blood 2.9 g/dL (3.4-5.0); Albumin/Globulin Ratio 0.9 (0.8-1.8); Alk Phos 52 U/L (50-136); Anion Gap 6 mmol/L (6-16); Aspartate Aminotrans (AST/SGOT 18 U/L (12-37); Blood Urea Nitrogen 28 mg/dL (8-24); Bun/Creatinine Ratio 41.1 (12.0-20.0); CO2, Blood 20 mmol/L (21-32); Chloride, Blood 108 mmol/L (98-108); Creatinine, Blood 0.68 mg/dL (0.60-1.20); Globulin, Blood 3.4 g/dL (2.2-4.0); Glomerular Filtration Rate >60 (60-); Glucose, Blood 194 mg/dL (70-99); Magnesium, Blood 1.7 mg/dL (1.6-2.4); Potassium, Blood 3.8 mmol/L (3.5-5.5); Sodium, Blood 134 mmol/L (136-145); Total Protein, Blood 6.3 g/dL (6.4-8.2)
--- NOTE | 2019-09-19 05:50 | NUR ---
IMMODIUM RX'D PER FOR CONT'D DIARRHEA AND C.DIFF LAB CANCELLED D/T PT TESTING POSITIVE PRIOR TO ADMISSION ON ORAL VANCO. WILL INFORM DAY STAFF OF CHANGE.
--- NOTE | 2019-09-19 06:42 | NUR ---
PT HADN'T VOIDED YET THIS SHIFT AND FELT NO SENSATION OR NEED TO DO SO. BLADDER SCAN PERFORMED AND 1500MLS RETAINED. PT ATTEMPTED TO VOID W/O SUCCESS. ALERTED W/NEW ORDERS RECIEVED TO ST.CATH NOW AND BLADDER SCAN AGAIN IN 6 HOURS AT 1200. 16FR COUDE INSERTED AND CONNECTED TO DRAINAGE BAG D/T SLOW URINE OUTPUT. 1500MLS URINE OBTAINED AND CATH STILL DRAINING SO HAS BEEN LEFT IN PLACE FOR THE MOMENT. UA W/CX OBTAINED AND SENT PER PROTOCOL. PREVIOUS UA HADN'T BEEN OBTAINED D/T INABILITY TO VOID. WILL CANCEL UA VIA CLEAN CATCH ORDER SINCE NOW IS A DUPLICATE. WILL ENSURE DAY STAFF PULLS CATH OR GET RX TO LEAVE IN PLACE.
[2019-09-19 06:55] LABS: Source, Urine Catheter
[2019-09-19 07:12] LABS: Appearance, Urine Clear (Clear); Bilirubin, Urine Neg (Neg); Blood, Urine Neg (Neg); Color, Urine Yellow (P-Yellow); Glucose Qualitative, Urine 4+ (Neg); Ketones, Urine Neg (Neg); Leukocyte Esterase, Urine Neg (Neg); Nitrite, Urine Neg (Neg); Protein, Urine 1+ (Neg); Urobilinogen, Urine NORM (Normal)
--- NOTE | 2019-09-19 19:37 | NUR ---
SHIFT SUMMARY: HAD RENAL U/S WITH BLADDER, WHICH SHOWED 730 ML URINE IN BLADDER; NO URGE TO URINATE. WAITED 2 HOURS, REPEAT BLADDER SCAN SHOWED 1100 ML. EDUCATED PATIENT ABOUT RISKS AND BENEFITS OF INTERMITTENT CATHETERIZATION, AND PATIENT AGREED. USED 14 FR COUDE AND OBTAINED 850 ML YELLOW URINE WITH SEDIMENT. C/O DISCOMFORT IN L ELBOW AND L SHOULDER FROM FALL. TOLERATING BRAT DIET.
--- NOTE | 2019-09-20 00:20 | NUR ---
PT REQUESTED HIS EYES DROPS FOR HIS GLAUCOMA BE ORDERED. I CALLED RON AND RECEIVED ORDER.
--- NOTE | 2019-09-20 03:20 | NUR ---
PT C/O FEELING OF LOW BLOOD SUGAR.CBG 78. GAVE APPLE JUICE PT CHOICE OF JUICE.
--- NOTE | 2019-09-20 09:21 | NUR ---
SUMMARY ROLDAN WAS PLACE WTIH GOOD RETURN. PT WITH NO OTHER ACUTE CHANGES.
[2019-09-20 13:19] LABS: Stool Occult Blood Guaiac 1 Neg (Neg)
--- NOTE | 2019-09-20 19:32 | NUR ---
SHIFT SUMMARY: NO ACUTE CHANGES TO REPORT THIS SHIFT. PT A&O; CALM AND COOPERATIVE WITH CARE. NO C/O PAIN THIS SHIFT. 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 ROLDAN IN PLACE FOR RETENTION; PATENT & DRAINING. IV & PO ABX CONTINUING; EXPECTED D/C TO HOME TOMORROW 09/20. REPORT GIVEN TO ONCOMING RN.
--- NOTE | 2019-09-20 22:53 | NUR ---
HS CBG 84. HELD 2100 DOSE OF 40 UNITS OF LANTUS. SPOKE WITH MAGI CARMONA, SAID OK TO HOLD FOR daPulse.
[2019-09-21 05:44] LABS: Hematocrit 33.6 % (37.0-53.0); Hemoglobin 10.5 g/dL (13.5-17.5); Mean Corpuscular HGB Conc 31.3 g/dL (31.5-36.5); Mean Corpuscular Volume 86 fL (80-100); Mean Platelet Volume 10.6 fL (9.1-12.4); Platelet Count 134 K/mm3 (150-400); RDW Coefficient Variation 14.1 % (11.7-14.2); RDW Standard Deviation 44.6 fL (35.1-46.3); Red Blood Cell Count 3.89 M/mm3 (4.30-5.90); White Blood Cell Count 5.07 K/mm3 (4.00-11.30)
[2019-09-21 06:06] LABS: Anion Gap 4 mmol/L (6-16); BAND PERCENT MAN 11 % (0-8); BASOPHILS PERCENT MAN 2 % (0-2); Blood Urea Nitrogen 6 mg/dL (8-24); Bun/Creatinine Ratio 12.1 (12.0-20.0); CO2, Blood 26 mmol/L (21-32); Calcium, Blood 8.4 mg/dL (8.5-10.1); Chloride, Blood 110 mmol/L (98-108); EOSINOPHILS PERCENT MAN 2 % (0-6); Glomerular Filtration Rate >60 (60-); Glucose, Blood 116 mg/dL (70-99); LYMPHOCYTES ABSOLUTE MAN 1.11 K/mm3 (0.84-5.20); LYMPHOCYTES PERCENT MAN 22 % (21-46); MONOCYTES PERCENT MAN 12 % (4-13); NEUTROPHILS ABSOLUTE MAN 3.14 K/mm3 (1.96-9.15); Potassium, Blood 3.5 mmol/L (3.5-5.5); SEG NEUTROPHILS PERCENT MAN 51 % (41-73); Sodium, Blood 140 mmol/L (136-145); TOTAL CELLS COUNTED 100
--- NOTE | 2019-09-21 07:22 | NUR ---
REGIONAL DIRECTOR OF FINANCE SUMMARY PT AAOX4 AND PLEASANT. CONTINUES TO HAVE FREQUENT BM'S HOWEVER THEY ARE BECOMING MORE FORMED. PO VANCO Q6H. PT DENIES PAIN, N/V, SOB. CALLS APPROPRIATELY FOR ASSISTANCE TO THE BATHROOM. VSS, WILL CONTINUE TO MONITOR.
--- NOTE | 2019-09-21 19:16 | NUR ---
SHIFT SUMMARY: NO ACUTE CHANGES TO REPORT THIS SHIFT. PT A&O; CALM AND COOPERATIVE WITH CARE. NO C/O PAIN THIS SHIFT. ROLDAN IN PLACE FOR RETENTION; PATENT AND DRAINING. REHYDRATION CONTINUING. IV & PO ABX CONTINUING. REPORT GIVEN TO ONCOMING RN.
--- NOTE | 2019-09-22 04:46 | NUR ---
SHIFT SUMMARY PT REPORTS THAT HE IS "FEELING MUCH BETTER" THIS EVENING. PT FELL ASLEEP LATE IN THE EVENING BUT SLEPT WELL FOLLOWING. PT HOPEFUL TO BE DISCHARGED HOME TODAY. NO COMPLAINTS OF PAIN. NO SOB. PT HAD ONE BOWEL MOVEMENT THIS EVENING. BROWN AND MOSTLY FORMED. PT DOES REPORT A "GURGLING" FEELING IN HIS STOMACH BUT STATES THAT IT ALSO HAS BEEN IMPROVING. VITAL SIGNS STABLE. WILL CONTINUE TO MONITOR.
--- NOTE | 2019-09-22 15:41 | NUR ---
SHIFT SUMMARY PT IS A/O X 4 HE DID C/O PAIN THIS MORNING BUT REPORTED THAT THE TYLENOL WAS EFFECTIVE AND WAS ABLE TO FALL ASLEEP. ROLDAN HAS REMAINED PATENT ALL DAY AND DR PYLE HAD BLADDER TRAINING STARTED WHICH WAS DONE AND THE ROLDAN WAS DCD ORDERED, THE PT NOW HAS A URINAL AT THE BEDSIDE AND IS AWAITING THE URGE TO URINATE. IV ABO AND FLUIDS HAVE BEEN INFUSING WITH NO ISSUE. THE IS AT THE BEDSIDE AND THEY ARE BOTH VERY HAPPY WITH THEIR STAY HERE. HE IS ABLE TO AMBULATE TO THE TOILET WITH STAND BY ASSIST. HE CALLS FOR HELP WHEN NEEDED.
--- NOTE | 2019-09-23 02:02 | NUR ---
09/21 @2140- PT. ROLDAN CATHETER D/C'D DURING DAY SHIFT IN THE AFTERNOON. PT. WAS UNABLE TO VOID. BLADDER SCAN DONE PER ORDER WITH RESULT OF >595ML. NOTIFIED KRISTINE HESTER NP. RECEIVED ORDER TO CONT TO MONITOR PT. AND PERFORM BLADDER SCAN IN 6HRS.
[2019-09-23 05:47] LABS: BASOPHILS ABSOLUTE AUTO 0.01 K/mm3 (0.00-0.23); BASOPHILS PERCENT AUTO 0 % (0-2); EOSINOPHILS PERCENT AUTO 2 % (0-6); Hematocrit 32.9 % (37.0-53.0); Hemoglobin 10.1 g/dL (13.5-17.5); IMMATURE GRAN ABSOLUTE AUTO 0.02 K/mm3 (0.00-0.10); IMMATURE GRAN PERCENT AUTO 0 % (0-1); LYMPHOCYTES ABSOLUTE AUTO 2.25 K/mm3 (0.84-5.20); LYMPHOCYTES PERCENT AUTO 41 % (21-46); MONOCYTES ABSOLUTE AUTO 0.77 K/mm3 (0.16-1.47); MONOCYTES PERCENT AUTO 14 % (4-13); Mean Corpuscular HGB Conc 30.7 g/dL (31.5-36.5); Mean Corpuscular Volume 88 fL (80-100); Mean Platelet Volume 10.7 fL (9.1-12.4); NEUTROPHILS ABSOLUTE AUTO 2.31 K/mm3 (1.96-9.15); NEUTROPHILS PERCENT AUTO 42 % (41-73); Platelet Count 153 K/mm3 (150-400); RDW Standard Deviation 45.2 fL (35.1-46.3); Red Blood Cell Count 3.74 M/mm3 (4.30-5.90); White Blood Cell Count 5.46 K/mm3 (4.00-11.30)
--- NOTE | 2019-09-23 05:53 | NUR ---
PT. BLADDER SCANNED PER ORDER WITH RESULT OF >858ML. DR. TIDWELL MADE AWARE. ORDER RECEIVED TO PLACE ROLDAN CATHETER. 14FR. ROLDAN CATHETER INSERTED PER ORDER. PT. TOLERATED WELL. OUTPUT OF 1000ML NOTED. ROLDAN PATENT AND DRAINING WELL. WILL CONT TO MONITOR.
[2019-09-23 06:00] LABS: Source, Urine Catheter
[2019-09-23 06:03] LABS: Appearance, Urine Clear (Clear); Bilirubin, Urine Neg (Neg); Blood, Urine 1+ (Neg); Color, Urine Yellow (P-Yellow); Glucose Qualitative, Urine 1+ (Neg); Ketones, Urine Neg (Neg); Leukocyte Esterase, Urine 1+ (Neg); Nitrite, Urine Neg (Neg); Protein, Urine 2+ (Neg); Urobilinogen, Urine NORM (Normal)
[2019-09-23 06:09] LABS: Red Blood Cells, Urine 0-2 /hpf (0-2); Squamous Epithelial Cells Few /hpf (Few); White Blood Cells, Urine 0-2 /hpf (0-5)
[2019-09-23 06:10] LABS: Anion Gap 4 mmol/L (6-16); Blood Urea Nitrogen 10 mg/dL (8-24); Bun/Creatinine Ratio 17.9 (12.0-20.0); CO2, Blood 28 mmol/L (21-32); Calcium, Blood 8.2 mg/dL (8.5-10.1); Chloride, Blood 107 mmol/L (98-108); Creatinine, Blood 0.56 mg/dL (0.60-1.20); Glomerular Filtration Rate >60 (60-); Glucose, Blood 89 mg/dL (70-99); Potassium, Blood 3.7 mmol/L (3.5-5.5); Sodium, Blood 139 mmol/L (136-145)
[2019-09-23 06:10] LABS: Amorphous Light (0-Heavy); Bacteria Few /hpf
--- NOTE | 2019-09-23 06:26 | NUR ---
SHIFT SUMMARY- PT. SLEPT ON/OFF DURING THE NIGHT. ROLDAN CATHETER REMOVED YESTERDAY IN THE AFTERNOON. PT. STATED HAVING THE URGE TO VOID BUT UNABLE. BLADDER SCAN DONE PER ORDER. FIRST RESULT WAS >595. PER KRISTINE HESTER NP, OK TO MONITOR AND REPEAT BLADDER SCAN IN 6HRS. PT. WAS ABLE TO VOID 350ML. REPEAT BLADDER SCAN RESULTED IN >858. HOSPITAL[address] DR. TIDWELL NOTIFIED. ORDER RECEIVED FOR REINSERTION OF ROLDAN CATHETER. PT. TOLERATED WELL. DENIED ANY C/O PAIN. APPEARS TO BE RESTING COMFORTABLY IN BED. NO APPARENT DISTRESS NOTED. CALL LIGHT WITHIN REACH AND SIDE RAILS UP X2. WILL CONT TO MONITOR.
[2019-09-23] MEDS ORDERED: ACET325 PO (11:19)
[2019-09-23] MEDS ORDERED: FAMO20 PO (11:20)
[2019-09-23] MEDS ORDERED: Pepto-Bismol262 MG PO (11:20)
[2019-09-23] MEDS ORDERED: LOPE2C PO (11:24)
[2019-09-23] MEDS ORDERED: Florastor250 MG PO (11:24)
[2019-09-23] MEDS ORDERED: TAMS.4ER PO (11:27)
[2019-09-23] MEDS ORDERED: MIDO5 PO (11:27)
[2019-09-23] MEDS ORDERED: ONDA4ODT MM (11:27)
[2019-09-23] MEDS ORDERED: Vancomycin500 MG/100 PO (11:29)
[2019-09-23] MEDS ORDERED: VANCOCIN HCL125 MG PO (11:32)
--- NOTE | 2019-09-23 13:14 | NUR ---
Discharge Summary A/Ox3, 1P SBA with FWW d/t lines. Pleasant with care, calls appropriately. Stool is still loose, but not liquidy. Discharging to home. Patient refused Home Health services, informed patient if he changes his mind, he can call back to see if HH orders still apply. Refusing HH d/t too many animals at the house. Reviewed discharge paperwork with patient and at the bedside, all questions were answered, copy provided. IV removed, WNL. Meds faxed to [facility] per patient request d/t [facility] pharmacy closed. Personal belongings bagged by patient and , sent home. Discharging with bradford d/t retention, patient instructed to f/u with PCP RE removing bradford within 3 days. Will be escorted via w/c by SPRING BENDER once patient is ready.
== END 2019-09-23 13:32 | disposition home or self-care (01) | DRG 872 ==
LOC: ER 17:23 → MEDS 21:41 → ENPENDDIS 09-23 11:07 → MEDS 09-23 13:32
PROVIDERS: Emergency Medicine; Family Medicine; Internal Medicine; Nurse Practitioner Acute Care; ADMIT Internal Medicine
DX: A41.4 Sepsis due to anaerobes (principal); E11.9 Type 2 diabetes mellitus without complications; I10 Essential (primary) hypertension; R33.9 Retention of urine, unspecified; E78.5 Hyperlipidemia, unspecified; E86.0 Dehydration; I95.9 Hypotension, unspecified; I25.10 Atherosclerotic heart disease of native coronary artery without angina pectoris; Z95.1 Presence of aortocoronary bypass graft; Z95.5 Presence of coronary angioplasty implant and graft; I25.2 Old myocardial infarction; Z79.4 Long term (current) use of insulin; Z79.82 Long term (current) use of aspirin; Z87.891 Personal history of nicotine dependence
CPT/HCPCS: 0097U; 36415; 70450; 71045; 72125; 76770; 80048; 80053; 81001; 82270; 82947; 83605; 83735; 84484; 85025; 87040; 93005; 93010; 96361; 96365; 96375; 99285-25; A9270; A9270-GY; G0480; J1650; J2405; J3370; J7030; J7050; J7120

== ENCOUNTER 2019-10-08 00:22 | Day surgery (SDC) | payer OTHER ==
[~2019-10-08 00:22] MED LIST changes: +ACET325 PO; +Aspir 8181 MG PO; +CLOP75 PO; +FAMO20 PO; +Florastor250 MG PO; +LEVEMIR100 UNIT/1 SC; +LOPE2C PO; +METO25 PO; +NOVOLOG100 UNIT/2 SC; +ONDA4ODT MM; +Pepto-Bismol262 MG PO; +Prozac20 MG PO; +SIMV40 PO; +TIMO.5OPSO BOTHEYES; +VANCOCIN HCL125 MG PO; +Vancocin HCl125 MG PO; +Vancomycin500 MG/100 PO
== END 2019-10-08 22:47 | disposition home or self-care (01) ==
LOC: WOUND 00:22
DX: E11.621 Type 2 diabetes mellitus with foot ulcer (principal); L97.519 Non-pressure chronic ulcer of other part of right foot with unspecified severity; E78.5 Hyperlipidemia, unspecified; I10 Essential (primary) hypertension; Z79.4 Long term (current) use of insulin; Z79.82 Long term (current) use of aspirin; Z79.899 Other long term (current) drug therapy

== ENCOUNTER 2020-04-21 12:49 | Inpatient (IN) | payer OTHER ==
[~2020-04-21] VITALS: Ht 182.9 cm; Wt 85.7 kg
[2020-04-21] MEDS ORDERED: BRIMONIDINE TART5 M2 BOTHEYES (15:20)
[2020-04-21 15:29] LABS: BASOPHILS ABSOLUTE AUTO 0.01 K/mm3 (0.00-0.23); BASOPHILS PERCENT AUTO 0 % (0-2); EOSINOPHILS ABSOLUTE AUTO 0.09 K/mm3 (0.00-0.68); EOSINOPHILS PERCENT AUTO 1 % (0-6); Hemoglobin 13.7 g/dL (13.5-17.5); IMMATURE GRAN ABSOLUTE AUTO 0.05 K/mm3 (0.00-0.10); IMMATURE GRAN PERCENT AUTO 1 % (0-1); LYMPHOCYTES ABSOLUTE AUTO 1.34 K/mm3 (0.84-5.20); LYMPHOCYTES PERCENT AUTO 19 % (21-46); MONOCYTES ABSOLUTE AUTO 0.37 K/mm3 (0.16-1.47); MONOCYTES PERCENT AUTO 5 % (4-13); Mean Corpuscular HGB 29.1 pg (26.0-34.0); Mean Corpuscular HGB Conc 32.6 g/dL (31.5-36.5); Mean Corpuscular Volume 89 fL (80-100); Mean Platelet Volume 10.7 fL (9.1-12.4); NEUTROPHILS ABSOLUTE AUTO 5.15 K/mm3 (1.96-9.15); NEUTROPHILS PERCENT AUTO 74 % (41-73); Platelet Count 225 K/mm3 (150-400); RDW Standard Deviation 39.2 fL (35.1-46.3); Red Blood Cell Count 4.71 M/mm3 (4.30-5.90); White Blood Cell Count 7.01 K/mm3 (4.00-11.30)
[2020-04-21 15:49] LABS: Alanine Aminotransfer (ALT/SGP 34 U/L (12-78); Albumin, Blood 3.4 g/dL (3.4-5.0); Albumin/Globulin Ratio 0.8 (0.8-1.8); Alk Phos 71 U/L (50-136); Anion Gap 7 mmol/L (6-16); Aspartate Aminotrans (AST/SGOT 25 U/L (12-37); Bilirubin, Total 0.3 mg/dL (0.1-1.0); Blood Urea Nitrogen 29 mg/dL (8-24); Bun/Creatinine Ratio 69.4 (12.0-20.0); CO2, Blood 25 mmol/L (21-32); Chloride, Blood 104 mmol/L (98-108); Creatinine, Blood 0.42 mg/dL (0.60-1.20); Globulin, Blood 4.2 g/dL (2.2-4.0); Glomerular Filtration Rate >60 (60-); Glucose, Blood 230 mg/dL (70-99); Potassium, Blood 4.4 mmol/L (3.5-5.5); Sodium, Blood 136 mmol/L (136-145); Total Protein, Blood 7.6 g/dL (6.4-8.2)
[2020-04-21 16:40] LABS: Influenza A, PCR Negative (NEGATIVE); Influenza B, PCR Negative (NEGATIVE); Resp Syncytial Virus, PCR Negative (NEGATIVE); SARS-Cov-2 (COVID-19) PCR, MMC Negative (NEGATIVE)
--- NOTE | 2020-04-21 16:57 | NUR ---
PT ARRIVED TO THE ROOM AT APPROXIMATELY 1640. PT IS ALERT AND ORIENTED. PT REPORTS PAIN WITH MOVEMENT BUT REPORTS PAIN IS TOLERABLE AT REST. VSS. WILL CONTINUE TO MONITOR.
[2020-04-21] MEDS ORDERED: Isosorbide Mono60 MG PO (17:16)
[2020-04-21] MEDS ORDERED: FURO20 PO (17:29)
--- NOTE | 2020-04-22 03:25 | NUR ---
SHIFT SUMMARY: LEFT HIP FRACTURE PATIENT IS ALERT AND ORIENTED X4 WHILE AWAKE. HE HAS BEEN ASLEEP MOST OF THE SHIFT BUT IS EASILY AROUSABLE. VITALS ARE WNL AND ON RA. PAIN IS CONTROLLED WITH 1 LAURA PO AND 25 MCG IV FENTANYL. HE HAS ABRASIONS SCATTERED BLE AND HAS SWELLING/REDNESS TO THE LEFT HIP. PATIENT IS ABLE TO WIGGLE TOES AND FINGERS. 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 PATIENT IS RESTING IN BED WITH CALL LIGHT IN REACH. CALLS APPROPRIATELY. THE PLAN IS FOR SURGERY TODAY AROUND 1230. HE HAS BEEN NPO SINCE MIDNIGHT. SCD'S ARE ON.
--- NOTE | 2020-04-22 11:52 | NUR ---
History, Chart, Medications and Allergies reviewed before start of procedure. Pre-Op teaching done. Pt verbalizes understanding. TRANSPORTED FROM RM 219 TO [facility].
--- NOTE | 2020-04-22 15:33 | NUR ---
PT ARRIVED BACK TO THE ROOM FROM PACU AT APPROXIMATELY 1445. PT ALERT AND ORIENTED. PT DENIES PAIN. PT PROVIDED CLEAR LIQUIDS AND IS TOLERATING THEM. VSS. WILL CONTINUE TO MONITOR.
--- NOTE | 2020-04-22 19:08 | NUR ---
SHIFT SUMMARY PT IS POD#3 FROM L OWEN HIP REPAIR. PT REQUIRED A FLUID BOLUS TODAY AND MENTATION HAS IMPROVED. PT IS NOW GETTING GENTLE IV HYDRATION. PT HAD A BM TODAY AFTER BOWEL CARE. VSS. REPORT GIVEN TO FAUSTO MOHAMUD.
--- NOTE | 2020-04-23 03:38 | NUR ---
SHIFT SUMMARY: POD 1 LEFT HIP PINNING PATIENT IS ALERT AND ORIENTED X4 WHILE AWAKE. HE HAS BEEN ASLEEP MAJORITY OF THE SHIFT BUT IS EASILY AROUSABLE. VITALS ARE WNL AND IS ON RA. PAIN IS CONTROLLED IS 2 OXY PO. HE HAS ABRASIONS SCATTERED BLE FROM WHEN HE FELL AT HOME. HE HAS NEUROPATHY BILATERALLY FROM THE KNEES DOWN AND ON BOTH HANDS. HE REPORTS THAT THIS IS HIS BASELINE. HE CALLS APPROPRIATELY. HE HAS BEEN VOIDING AND TOLERATING PO INTAKE. CALL LIGHT WITHIN REACH. PATIENT IS CURRENTLY RESTING LAYING IN BED SNORING. THE PLAN IS TO WORK WITH PT/OT AND KEEP PAIN CONTROLLED.
[2020-04-23 04:38] LABS: BASOPHILS ABSOLUTE AUTO 0.03 K/mm3 (0.00-0.23); BASOPHILS PERCENT AUTO 0 % (0-2); EOSINOPHILS ABSOLUTE AUTO 0.16 K/mm3 (0.00-0.68); EOSINOPHILS PERCENT AUTO 2 % (0-6); Hematocrit 35.4 % (37.0-53.0); Hemoglobin 11.4 g/dL (13.5-17.5); IMMATURE GRAN ABSOLUTE AUTO 0.02 K/mm3 (0.00-0.10); IMMATURE GRAN PERCENT AUTO 0 % (0-1); LYMPHOCYTES ABSOLUTE AUTO 0.97 K/mm3 (0.84-5.20); LYMPHOCYTES PERCENT AUTO 13 % (21-46); MONOCYTES ABSOLUTE AUTO 0.56 K/mm3 (0.16-1.47); MONOCYTES PERCENT AUTO 8 % (4-13); Mean Corpuscular HGB 29.5 pg (26.0-34.0); Mean Corpuscular HGB Conc 32.2 g/dL (31.5-36.5); Mean Corpuscular Volume 92 fL (80-100); Mean Platelet Volume 10.6 fL (9.1-12.4); NEUTROPHILS ABSOLUTE AUTO 5.75 K/mm3 (1.96-9.15); NEUTROPHILS PERCENT AUTO 77 % (41-73); Platelet Count 143 K/mm3 (150-400); RDW Coefficient Variation 12.1 % (11.7-14.2); RDW Standard Deviation 40.8 fL (35.1-46.3); Red Blood Cell Count 3.86 M/mm3 (4.30-5.90); White Blood Cell Count 7.49 K/mm3 (4.00-11.30)
[2020-04-23 04:55] LABS: Anion Gap 3 mmol/L (6-16); Blood Urea Nitrogen 15 mg/dL (8-24); Bun/Creatinine Ratio 28.1 (12.0-20.0); CO2, Blood 30 mmol/L (21-32); Calcium, Blood 8.6 mg/dL (8.5-10.1); Chloride, Blood 103 mmol/L (98-108); Creatinine, Blood 0.53 mg/dL (0.60-1.20); Glomerular Filtration Rate >60 (60-); Glucose, Blood 255 mg/dL (70-99); Magnesium, Blood 1.8 mg/dL (1.6-2.4); Potassium, Blood 4.3 mmol/L (3.5-5.5); Sodium, Blood 136 mmol/L (136-145)
--- NOTE | 2020-04-23 17:33 | NUR ---
SHIFT SUMMARY PT A&OX4, VSS, POD1 L HIP PINNING, AQUACEL D/I. PAIN MANAGED WITH 5 MG OXY. NIGEL PO, DENIES N&V. AMBULATING W/FWW & GB IN ROOM, 2 PP FOR SAFETY, PATIENT IS DOING REALLY WELL GETTING IN/OUT OF CHAIR, AND WALKING THE HALLS W/SUPPORT. WILL REPORT TO BECCA LAMBERT RN.
--- NOTE | 2020-04-24 06:18 | NUR ---
SHIFT SUMMARY POD#2. AAOX4. LEFT HIP PINNING. DISCOMFORT CONTROLLED WITH 2 ROXICODONE Q4H. NO NAUSEA/EMESIS. DRESSING TO LEFT HIP C/D/I. PPP, MOVES TOES WELL BLE, DENIES N/T. PT RESTED WELL T/O NIGHT, CONTINUE TO ENCOURAGE PT OOB + AMBULATION TODAY TOLERATED.
[2020-04-24 08:26] LABS: Hematocrit 33.8 % (37.0-53.0)
[2020-04-24] MEDS ORDERED: OXYC5 PO (13:14)
--- NOTE | 2020-04-24 14:17 | NUR ---
DISCHARGE SUMMARY PT A&OX4, VSS, PAIN MANAGED WITH 5 MG NORCO, AMBULATING WITH FWW/GB/SBA, UP TO CHAIR, NIGEL PO, DISCHARGE INSTRUCTIONS PROVIDED. PT REP UNDERSTANDING THOSE INSTRUCTIONS INCLUDING FU WITH SURGEON, OK TO SHOWER, SHORT FREQUENT AMBULATION WITH REST PERIODS. LEFT FLOOR VIA WC WITH BUTCHERETTE TO GO HOME WITH SON AND DIL, WITH ALL PERSONAL POSSESSIONS INCLUDING DC PACKET AND 1 NARC SCRIPT AND 3 AQUACEL DRESSINGS. IV DC'D.
== END 2020-04-24 13:15 | disposition home or self-care (01) | DRG 482 ==
LOC: ER 12:49 → SURS 12:50
PROVIDERS: Emergency Medicine; Orthopaedic Surgery; Student in an Organized Health Care Education/Training Program; ADMIT Hospitalist
PROC: 0QS734Z Reposition Left Upper Femur with Internal Fixation Device, Percutaneous Approach (ICD-10-PCS; principal; 2020-04-22 12:30)
DX: S72.012A Unspecified intracapsular fracture of left femur, initial encounter for closed fracture (principal); E10.43 Type 1 diabetes mellitus with diabetic autonomic (poly)neuropathy; E78.5 Hyperlipidemia, unspecified; F41.8 Other specified anxiety disorders; H40.9 Unspecified glaucoma; I10 Essential (primary) hypertension; I25.10 Atherosclerotic heart disease of native coronary artery without angina pectoris; I95.9 Hypotension, unspecified; K21.9 Gastro-esophageal reflux disease without esophagitis; N40.0 Benign prostatic hyperplasia without lower urinary tract symptoms; Z87.891 Personal history of nicotine dependence; Z20.822 Contact with and (suspected) exposure to COVID-19; Z95.1 Presence of aortocoronary bypass graft; E10.69 Type 1 diabetes mellitus with other specified complication; Z95.5 Presence of coronary angioplasty implant and graft; W10.1XXA Fall (on)(from) sidewalk curb, initial encounter; I25.2 Old myocardial infarction; Z79.4 Long term (current) use of insulin
CPT/HCPCS: 0241U; 36415; 71045; 73502; 80048; 80053; 82947; 83735; 85014; 85018; 85025; 93005; 93010; 96374; 96375; 97110; 97116; 97162; 97166; 97530; 97535; 99285-25; A9270; C1713; C1769; J0690; J1650; J2250; J2370; J2405; J2704; J3010; J3480; J7120

== ENCOUNTER 2020-04-25 23:13 | Observation (INO) | payer OTHER ==
[~2020-04-25] VITALS: Ht 182.9 cm; Wt 85.7 kg
[~2020-04-25 23:13] MED LIST changes: +BRIMONIDINE TART5 M2 BOTHEYES; +FURO20 PO; +OXYC5 PO
--- NOTE | 2020-04-26 05:54 | NUR ---
SHIFT SUMMARY: PT A NEW ADMIT THIS SHIFT FROM ER AT APPROX 0120. PT HAD A LEFT HIP REPAIR ON 04/22/20 AND READMITTED R/T UNCONTROLLABLE PAIN. PT REPORTS BEING UNABLE TO CARE FOR SELF AT HOME. AQUACEL ON LEFT HIP C/D/I. PT MEDICATED WITH FENTANYL AND OXY PER EMAR. REPORTS LIMITED ROM TO LEFT LEG. PT UNABLE TO AMBULATE UPON ARRIVAL; REQUIRING A SLIDER SHEET. VOIDING IN URINAL. PLAN FOR PT/OT.
--- NOTE | 2020-04-26 17:16 | NUR ---
SUMMARY NO ACUTE CHANGES T/O SHIFT. PT REPORTS PAIN TOLERABLE AT THIS TIME. PLACED ICE PACK TO L KNEE OFF AND ON DURING SHIFT. MEDICATED PER ORDERS FOR PAIN T/O DAY. COVERED CBGS PER ORDERS. PT WAS UNABLE TO GET UP WITH THERAPY. CALL LIGHT IN REACH. VISITOR AT BEDSIDE. DENIES ANY NEEDS AT THIS TIME.
--- NOTE | 2020-04-27 07:25 | NUR ---
SHIFT SUMMARY S/P R HIP FX, PT CAME IN EARLIER THIS MONTH AFTER FALLING W/ A L HIP FX, FX REDUCED IN SURGERY, PATIENT WAS RECOMMENDED TO GO TO SNF BUT REFUSED STATING HE WOULD BE ALRIGHT AT HOME AND WAS DC'D. PT CAME BACK IN AND REPORTED HE WAS NOT ABLE TO CARE FOR HIMSELF, CHIEF COMPLAINT IS PAIN MANAGEMENT THOUGH HIS PAIN HAS BEEN WELL CONTROLLED W/ ORAL PAIN MEDS. TOLERATING PO, VOIDING WELL, NO BM THIS SHIFT BUT PASSING FLATUS. CALL LIGHT IN REACH, WILL CONTINUE TO MONITOR AND REPORT TO ONCOMING DAY RN.
--- NOTE | 2020-04-27 17:21 | NUR ---
SUMMARY NO ACUTE CHANGES T/O SHIFT. PT GOT UP W/TWO PERSON ASSIST AND AMBULATED TO RESTROOM AND THEN SAT IN CHAIR FOR APPROXIMATELY TWO HOURS. MEDICATED PER ORDERS FOR PAIN. COVERED CBGS PER ORDERS. PT PLEASANT AND COOPERATIVE. CALL LIGHT IN REACH.
[2020-04-28 04:36] LABS: BASOPHILS ABSOLUTE AUTO 0.01 K/mm3 (0.00-0.23); BASOPHILS PERCENT AUTO 0 % (0-2); EOSINOPHILS ABSOLUTE AUTO 0.21 K/mm3 (0.00-0.68); EOSINOPHILS PERCENT AUTO 3 % (0-6); Hematocrit 32.7 % (37.0-53.0); Hemoglobin 10.7 g/dL (13.5-17.5); IMMATURE GRAN ABSOLUTE AUTO 0.02 K/mm3 (0.00-0.10); IMMATURE GRAN PERCENT AUTO 0 % (0-1); LYMPHOCYTES ABSOLUTE AUTO 1.59 K/mm3 (0.84-5.20); LYMPHOCYTES PERCENT AUTO 26 % (21-46); MONOCYTES ABSOLUTE AUTO 0.72 K/mm3 (0.16-1.47); MONOCYTES PERCENT AUTO 12 % (4-13); Mean Corpuscular HGB 29.1 pg (26.0-34.0); Mean Corpuscular HGB Conc 32.7 g/dL (31.5-36.5); Mean Corpuscular Volume 89 fL (80-100); Mean Platelet Volume 10.1 fL (9.1-12.4); NEUTROPHILS ABSOLUTE AUTO 3.57 K/mm3 (1.96-9.15); NEUTROPHILS PERCENT AUTO 58 % (41-73); Platelet Count 263 K/mm3 (150-400); RDW Coefficient Variation 11.9 % (11.7-14.2); Red Blood Cell Count 3.68 M/mm3 (4.30-5.90); White Blood Cell Count 6.12 K/mm3 (4.00-11.30)
[2020-04-28 04:51] LABS: Anion Gap 7 mmol/L (6-16); Blood Urea Nitrogen 18 mg/dL (8-24); Bun/Creatinine Ratio 29.6 (12.0-20.0); CO2, Blood 27 mmol/L (21-32); Calcium, Blood 9.4 mg/dL (8.5-10.1); Chloride, Blood 100 mmol/L (98-108); Creatinine, Blood 0.61 mg/dL (0.60-1.20); Glomerular Filtration Rate >60 (60-); Glucose, Blood 222 mg/dL (70-99); Potassium, Blood 4.4 mmol/L (3.5-5.5); Sodium, Blood 134 mmol/L (136-145)
--- NOTE | 2020-04-28 06:09 | NUR ---
SHIFT SUMMARY S/P FAILURE TO MANAGE POST L HIP REPAIR, A/O X4, VSS, TOLERATING PO, VOIDING WELL, AMBULATED TO BATHROOM YESTERDAY W/ SBA & FWW PER REPORT, NO REPORT OF BM THIS SHIFT, PAIN CONTROLLED PER EMAR. NO ACUTE EVENTS DURING SHIFT, USES CALL LIGHT APPROPRIATELY. CALL LIGHT IN REACH, WILL CONTINUE TO MONITOR AND REPORT TO ONCOMING DAY RN.
--- NOTE | 2020-04-28 13:32 | NUR ---
ISTRATE RECENTLY TO SEE PT. PT REQ TO HAVE STOOL SOFTENER. SEE ORDERS.
--- NOTE | 2020-04-28 18:07 | NUR ---
ISTRATE NOTIFIED OF PT UNABLE TO GO TO SNF TODAY.
--- NOTE | 2020-04-28 18:12 | NUR ---
PER PT'S GLUCOMETER CBG 76. PT FEELING WELL.
--- NOTE | 2020-04-28 19:41 | NUR ---
SHIFT SUMMARY PT EATING AND DRINKING, VOIDING. PT WORKED WITH THERAPY TODAY. PT BEEN ASSISTED WITH ADL'S PRN. PT BEEN UP TO CHAIR WITH ASSIST. PT REPORTS HAVING BM LAST NIGHT APPROX 23:00. PT GIVEN BOWEL CARE TODAY PER HIS REQ. PT BACK IN BED, USING CALL LIGHT APPR. PT BEEN MED PRN FOR PAIN.
--- NOTE | 2020-04-29 03:15 | NUR ---
SHIFT SUMMARY: POD 7 LEFT HIP REPAIR PATIENT IS ALERT AND ORIENTED X4 WHILE AWAKE. HE HAS BEEN SLEEPING MAJORITY OF THE SHIFT BUT IS EASILY AROUSABLE. VS ARE WNL. PAIN IS CONTROLLED WITH 1 NORCO PO. HE IS ADEQUATELY EATING AND VOIDING. URINE IS YELLOW. HE IS A 1-2 PERSON ASSIST WHEN GETTING UP. HE USES A GAIT BELT AND FWW. HE CALLS APPROPRIATELY. CALL LIGHT WITHIN REACH. THE PLAN IS TO BE D/C'D TO SNF POSSIBLY TODAY AND TO WORK WITH PT/OT.
[2020-04-29 04:18] LABS: BASOPHILS ABSOLUTE AUTO 0.01 K/mm3 (0.00-0.23); BASOPHILS PERCENT AUTO 0 % (0-2); EOSINOPHILS PERCENT AUTO 4 % (0-6); Hematocrit 31.4 % (37.0-53.0); Hemoglobin 10.1 g/dL (13.5-17.5); IMMATURE GRAN ABSOLUTE AUTO 0.03 K/mm3 (0.00-0.10); IMMATURE GRAN PERCENT AUTO 1 % (0-1); LYMPHOCYTES ABSOLUTE AUTO 1.82 K/mm3 (0.84-5.20); LYMPHOCYTES PERCENT AUTO 32 % (21-46); MONOCYTES ABSOLUTE AUTO 0.73 K/mm3 (0.16-1.47); MONOCYTES PERCENT AUTO 13 % (4-13); Mean Corpuscular HGB 28.6 pg (26.0-34.0); Mean Corpuscular HGB Conc 32.2 g/dL (31.5-36.5); Mean Corpuscular Volume 89 fL (80-100); Mean Platelet Volume 9.9 fL (9.1-12.4); NEUTROPHILS ABSOLUTE AUTO 2.93 K/mm3 (1.96-9.15); NEUTROPHILS PERCENT AUTO 51 % (41-73); Platelet Count 278 K/mm3 (150-400); RDW Coefficient Variation 11.9 % (11.7-14.2); RDW Standard Deviation 38.3 fL (35.1-46.3); Red Blood Cell Count 3.53 M/mm3 (4.30-5.90); White Blood Cell Count 5.72 K/mm3 (4.00-11.30)
[2020-04-29 13:07] LABS: Influenza A, PCR Negative (NEGATIVE); Influenza B, PCR Negative (NEGATIVE); Resp Syncytial Virus, PCR Negative (NEGATIVE); SARS-Cov-2 (COVID-19) PCR, MMC Negative (NEGATIVE)
--- NOTE | 2020-04-29 13:34 | NUR ---
PROCESS AUTOMATION ENGINEER REPORTED PT TO GO TO [facility] APPROX 14:30 TODAY. PT NOTIFIED. BELONGINGS GATHERED INCLUDING HOME MEDICATION IN PERSONAL BELONGING BAGS. IV OUT WNL. NO OTHER IV'S IN PLACE. PT PAIN CONTROLLED ON PO PAIN MEDICATION.
--- NOTE | 2020-04-29 13:54 | NUR ---
PT REPORTS TALKING WITH FAMILY REGARDING DISCHARGE. SPENCER AT [facility] GIVEN REPORT. PT WAITING FOR TRANSPORT. ASSISTANT MEDIA BUYER ASSISTING WITH DISCHARGE.
--- NOTE | 2020-04-29 14:46 | NUR ---
PT FAMILY REQ TO TALK WITH PT ADVOCATE. PT ADVOCATE NOTIFIED AND TO ROOM RECENTLY.
--- NOTE | 2020-04-29 15:17 | NUR ---
PT OUT BY TRANSPORT WITH BELONGINGS, PAPERWORK. PT BEEN ASSISTED WITH ADL'S PRN. FAMILY AWARE.
== END 2020-04-29 15:18 ==
LOC: ER 23:13 → SURS 23:14
PROVIDERS: Family Medicine; ADMIT Family Medicine
DX: S72.012A Unspecified intracapsular fracture of left femur, initial encounter for closed fracture (principal); I10 Essential (primary) hypertension; I25.10 Atherosclerotic heart disease of native coronary artery without angina pectoris; E11.40 Type 2 diabetes mellitus with diabetic neuropathy, unspecified; E78.5 Hyperlipidemia, unspecified; F32.9 Major depressive disorder, single episode, unspecified; F41.9 Anxiety disorder, unspecified; H40.9 Unspecified glaucoma; N40.0 Benign prostatic hyperplasia without lower urinary tract symptoms; R53.1 Weakness; M25.562 Pain in left knee; I82.409 Acute embolism and thrombosis of unspecified deep veins of unspecified lower extremity; X58.XXXA Exposure to other specified factors, initial encounter; Y93.9 Activity, unspecified; Z87.891 Personal history of nicotine dependence; Z91.81 History of falling; Z95.828 Presence of other vascular implants and grafts; Z79.4 Long term (current) use of insulin; Z79.01 Long term (current) use of anticoagulants; Z98.890 Other specified postprocedural states
CPT/HCPCS: 0241U; 36415; 73560-LT; 80048; 82947; 85025; 96372; 96374; 97110; 97140; 97162; 97165; 97530; 97530-CO; 97535; 97535-CO; 99284; A9270; G0378; J1650; J1815; J3010

== ENCOUNTER 2020-05-09 15:17 | Inpatient (IN) | payer OTHER ==
[~2020-05-09] VITALS: Ht 182.9 cm; Wt 85.9 kg
--- NOTE | 2020-05-12 18:15 | NUR ---
PT RECENTLY HERE FROM PROCEDURE. PT APPEARS ORIENTED, FAMILY PRESENT. PT REPORTS PAIN 10/11. PT DENIES CP/SOB, N/V, N/T. PT HAS GAUZE DRESSING TO L HIP. PT HAS TEDS AND PAS IN PLACE. PT ON [id number]. PT EATING DINNER WITHOUT DIFFICULTY, DENIES NEED AT THIS TIME.
--- NOTE | 2020-05-12 19:45 | NUR ---
BEDSIDE REPORT GIVEN. PT HAS BED ALARM IN PLACE. CALL LIGHT IN REACH.
--- NOTE | 2020-05-13 03:37 | NUR ---
SHIFT SUMMARY POD#1 LEFT OWEN HIP. AAOX4. DISCOMFORT CONTROLLED WITH SCHEDULED TORADOL + TYLENOL. NO NAUSEA/EMESIS. DRESSING TO LEFT HIP C/D/I. PPP, MOVES TOES WELL BLE, HX NEUROPATHY WITH TINGLING TO BLE AT BASELINE. WOUND TO COCCYX NOTED UPON ADMISSION, WOUND DOCUMENTATION STARTED, NEW MEPILEX TO COCCYX THIS SHIFT. TECHNICAL DIFFICULTIES WITH CAMERA IMPEDING PICTURE DOCUMENTATION AT THIS TIME, WILL OBTAIN WORKING CAMERA WITH NEXT NEEDED COCCYX DRESSING CHANGE. PT REPOSITIONS SELF WELL IN BED WITH MINIMAL ASSIST, TURN Q2H. GOOD PO INTAKE + OUTPUT. PT CURRENTLY RESTING IN BED WITH CALL LIGHT IN REACH. AWAITING HOSPITALIST CONSULT.
[2020-05-13 05:23] LABS: BASOPHILS ABSOLUTE AUTO 0.01 K/mm3 (0.00-0.23); BASOPHILS PERCENT AUTO 0 % (0-2); EOSINOPHILS PERCENT AUTO 0 % (0-6); Hematocrit 28.4 % (37.0-53.0); Hemoglobin 9.1 g/dL (13.5-17.5); IMMATURE GRAN ABSOLUTE AUTO 0.03 K/mm3 (0.00-0.10); IMMATURE GRAN PERCENT AUTO 0 % (0-1); LYMPHOCYTES PERCENT AUTO 10 % (21-46); MONOCYTES ABSOLUTE AUTO 0.73 K/mm3 (0.16-1.47); MONOCYTES PERCENT AUTO 8 % (4-13); Mean Corpuscular HGB 28.5 pg (26.0-34.0); Mean Corpuscular Volume 89 fL (80-100); Mean Platelet Volume 10.3 fL (9.1-12.4); NEUTROPHILS ABSOLUTE AUTO 7.82 K/mm3 (1.96-9.15); NEUTROPHILS PERCENT AUTO 82 % (41-73); Platelet Count 267 K/mm3 (150-400); RDW Coefficient Variation 11.5 % (11.7-14.2); RDW Standard Deviation 36.9 fL (35.1-46.3); Red Blood Cell Count 3.19 M/mm3 (4.30-5.90); White Blood Cell Count 9.49 K/mm3 (4.00-11.30)
[2020-05-13 05:46] LABS: Anion Gap 5 mmol/L (6-16); Blood Urea Nitrogen 25 mg/dL (8-24); Bun/Creatinine Ratio 36.8 (12.0-20.0); CO2, Blood 26 mmol/L (21-32); Calcium, Blood 8.4 mg/dL (8.5-10.1); Chloride, Blood 100 mmol/L (98-108); Creatinine, Blood 0.68 mg/dL (0.60-1.20); Glomerular Filtration Rate >60 (60-); Glucose, Blood 289 mg/dL (70-99); Magnesium, Blood 1.7 mg/dL (1.6-2.4); Potassium, Blood 5.4 mmol/L (3.5-5.5); Sodium, Blood 131 mmol/L (136-145)
--- NOTE | 2020-05-13 07:44 | NUR ---
DR SALINAS BEEN TO SEE PT.
--- NOTE | 2020-05-13 07:45 | NUR ---
HOSPITALIST CONSULT CALLED TO [facility] THIS AM. DISCUSSED MEDS/ORDERS/LABS.
--- NOTE | 2020-05-13 09:07 | NUR ---
RECENTLY DISCUSSED PT REQUESTING TO HAVE DIFFERENT CARB COUNT WITH DR FRITZ. REPORTS TO GIVE 10 UNITS OF NOVOLOG THIS AM. SEE EMAR. ALSO GIVE LONG ACTING ORDERED (45 UNITS) THIS AM.
--- NOTE | 2020-05-13 09:36 | NUR ---
DR FRITZ HERE TO SEE PT.
--- NOTE | 2020-05-13 17:57 | NUR ---
SHIFT SUMMARY PT EATING AND DRINKING. PT VOIDING. PT HAD BM TODAY. PT BEEN REPOSITIONED ORDERED. PT BEEN UP TO [facility] MULT TIMES TODAY. PT HAS MEPILEX IN PLACE WELL SITTING ON PILLOW WHILE IN CHAIR. PT WORKED WITH THERAPY TODAY. DR SALINAS AND DR FRITZ TO SEE PT TODAY. PT HAD SUPPOSITORY TODAY PER HIS REQUEST WELL A BROWN COW TO ASSIST WITH HAVING BM. HIP PRECAUTIONS BEEN IN PLACE. PT BEEN MED ORDERED. DISCUSSED CBG'S WITH COBY.
[2020-05-13] MEDS ORDERED: MIDO5 PO (18:33)
--- NOTE | 2020-05-13 19:04 | NUR ---
FAMILY UPDATED PT'S HOME MED'S PER THEY'RE REQ. DR FRITZ NOTIFIED. SEE ZEYAD. DR FRITZ REPORTS WILL DISCUSS MIDODRINE WITH PT AT LATER TIME.
[2020-05-14 04:45] LABS: BASOPHILS ABSOLUTE AUTO 0.01 K/mm3 (0.00-0.23); BASOPHILS PERCENT AUTO 0 % (0-2); EOSINOPHILS ABSOLUTE AUTO 0.15 K/mm3 (0.00-0.68); EOSINOPHILS PERCENT AUTO 2 % (0-6); Hematocrit 23.5 % (37.0-53.0); Hemoglobin 7.8 g/dL (13.5-17.5); IMMATURE GRAN ABSOLUTE AUTO 0.02 K/mm3 (0.00-0.10); IMMATURE GRAN PERCENT AUTO 0 % (0-1); LYMPHOCYTES ABSOLUTE AUTO 1.66 K/mm3 (0.84-5.20); LYMPHOCYTES PERCENT AUTO 26 % (21-46); MONOCYTES ABSOLUTE AUTO 0.31 K/mm3 (0.16-1.47); MONOCYTES PERCENT AUTO 5 % (4-13); Mean Corpuscular HGB 28.9 pg (26.0-34.0); Mean Corpuscular HGB Conc 33.2 g/dL (31.5-36.5); Mean Corpuscular Volume 87 fL (80-100); Mean Platelet Volume 9.9 fL (9.1-12.4); NEUTROPHILS ABSOLUTE AUTO 4.17 K/mm3 (1.96-9.15); NEUTROPHILS PERCENT AUTO 66 % (41-73); Platelet Count 256 K/mm3 (150-400); RDW Coefficient Variation 11.8 % (11.7-14.2); RDW Standard Deviation 37.8 fL (35.1-46.3); White Blood Cell Count 6.32 K/mm3 (4.00-11.30)
[2020-05-14 05:08] LABS: Anion Gap 6 mmol/L (6-16); Blood Urea Nitrogen 32 mg/dL (8-24); Bun/Creatinine Ratio 36.6 (12.0-20.0); CO2, Blood 29 mmol/L (21-32); Calcium, Blood 8.7 mg/dL (8.5-10.1); Chloride, Blood 98 mmol/L (98-108); Creatinine, Blood 0.87 mg/dL (0.60-1.20); Glomerular Filtration Rate >60 (60-); Glucose, Blood 60 mg/dL (70-99); Sodium, Blood 133 mmol/L (136-145)
--- NOTE | 2020-05-14 05:17 | NUR ---
SHIFT SUMMARY: MORENA IS A&OX4. VSS, BLOOD SUGAR IS 60 THIS AM, SNACK PROVIDED, PT ASYMPTOMATIC AT THIS TIME. HEMOGLOBIN 7.8, REPORTED TO CLOTH WASHER PHYSICIAN, NO NEW ORDERS. HE HAS BEEN TURNED AND REPOSITIONED Q1 THIS SHIFT UNTIL MIDNIGHT WHEN HE REQUESTED TO EXTEND THAT TIME TO Q2. HE IS TOLERATING PO INTAKE WELL. HE IS A ONE PERSON ASSIST TO THE BEDSIDE COMMODE WITH GAIT BELT AND FWW. VITO HOSE AND SCDs IN PLACE. HE REPORTS ADEQUATE PAIN CONTROL WITH THE APAP, TORADOL, AND OXYCODONE. HE IS ABLE TO MAKE HIS NEEDS KNOWN. HE IS LYING IN BED WITH HIS CALL LIGHT IN REACH. WILL REPORT TO DAY SHIFT RN.
[2020-05-14 12:52] LABS: Influenza A, PCR NEGATIVE (NEGATIVE); Influenza B, PCR NEGATIVE (NEGATIVE); Resp Syncytial Virus, PCR NEGATIVE (NEGATIVE); SARS-Cov-2 (COVID-19) PCR, MMC NEGATIVE (NEGATIVE)
--- NOTE | 2020-05-14 15:09 | NUR ---
PT REPORTED FELT LIKE BLOOD SUGAR DROPPING KNOT SAW OPERATOR CHECKED CBG WITH A READING OF 58. PT EATING SNACK AND JUICE. CALL LIGHT IN REACH.
--- NOTE | 2020-05-14 18:40 | NUR ---
SUMMARY PT SAT UP IN CHAIR FOR COUPLE HOURS. WORKED WITH THERAPY. REPOSITIONED T/O SHIFT WHILE IN BED. MEDICATED PER ORDERS FOR PAIN T/O SHIFT. CHANGED AQUACEL DRESSING TO L HIP. PT REPORTED THIS AFTERNOON FELT BLOOD SUGAR DROPPING. UPON CHECKING, CBG FOUND TO BE 58. PROVIDED SNACK WHICH BROUGHT UP TO 81. SPOKE TO DR RAY REGARDING BLOOD GLUCOSE. HELD 1630 HUMALOG DOSE AND CHANGED TONIGHT'S SEMGLEE TO OT DOSE OF 22 UNITS AT BEDTIME PER ORDERS. CALL LIGHT IN REACH.
--- NOTE | 2020-05-15 05:11 | NUR ---
SHIFT SUMMARY LYING IN SEMI FOWLERS WITH EYES CLOSED, HAS RESTED WELL. NO SIGNIFICANT CHANGES NOTED THIS SHIFT. DRESSING TO LEFT HIP REMAINS C/D/I. REPOSITIONS FOR COMFORT. DENIES PAIN, DISCOMFORT, OR FURTHER NEEDS AT THIS TIME. HAS BEEN COMPLIANT WITH EATING SNACKS TO AVOID LOW GLUCOSE LEVELS. SAFETY MEASURES IN PLACE. WILL CONTINUE TO MONITOR AND GIVE HAND OFF TO ONCOMING SHIFT USING SBAR DURING BEDSIDE REPORT.
--- NOTE | 2020-05-15 10:50 | NUR ---
CALLED REPORT TO [facility]. DISCUSSED WOUND CARE. DC'D IV, CATHETER INTACT. PT SITTING IN RECLINER AWAITING TRANSPORT.
--- NOTE | 2020-05-15 11:31 | NUR ---
PT LEFT UNIT W/ESCORT IN WC W/POSSESSIONS, POLAR PACK, DC PACKET IN HAND AT 1115.
== END 2020-05-15 11:04 | DRG 470 ==
LOC: SURS 05-12 12:38 → PRE IP 05-12 14:00 → SURS 05-12 17:39
PROVIDERS: Nurse Practitioner Acute Care; ADMIT Orthopaedic Surgery
PROC: 0QP704Z Removal of Internal Fixation Device from Left Upper Femur, Open Approach (ICD-10-PCS; principal; 2020-05-12 13:00)
PROC: 0SRS0J9 Replacement of Left Hip Joint, Femoral Surface with Synthetic Substitute, Cemented, Open Approach (ICD-10-PCS; 2020-05-12 13:00)
DX: T84.125A Displacement of internal fixation device of left femur, initial encounter (principal); I10 Essential (primary) hypertension; I25.10 Atherosclerotic heart disease of native coronary artery without angina pectoris; N40.0 Benign prostatic hyperplasia without lower urinary tract symptoms; E78.5 Hyperlipidemia, unspecified; E11.40 Type 2 diabetes mellitus with diabetic neuropathy, unspecified; F32.9 Major depressive disorder, single episode, unspecified; L89.891 Pressure ulcer of other site, stage 1; L89.152 Pressure ulcer of sacral region, stage 2; F41.9 Anxiety disorder, unspecified; H40.9 Unspecified glaucoma; M21.372 Foot drop, left foot; Z95.1 Presence of aortocoronary bypass graft; Z95.5 Presence of coronary angioplasty implant and graft; Z79.4 Long term (current) use of insulin; Z79.82 Long term (current) use of aspirin; Z79.02 Long term (current) use of antithrombotics/antiplatelets
CPT/HCPCS: 0241U; 36415; 72170; 80048; 82947; 83735; 85025; 88305; 88311; 97110; 97116; 97162; 97166; 97530; 97535; A9270; C1713; C1769; C1776; J0171; J0690; J0735; J1100; J1815; J1885; J2370; J2405; J2704; J2795; J3010; J3370; J7030; J7120

== ENCOUNTER → 2021-12-18 | Outpatient (CLI) | payer OTHER ==
[2021-12-18 11:33] LABS: Creatinine, Urine Random 36.1 mg/dL (27.00-270.00)
[2021-12-18 11:36] LABS: Microalb/Creat Ratio UR, Rand 313.019 mg/g (0.000-30.000)
== END | disposition home or self-care (01) ==
LOC: LAB 09:12 → LAB SHORT 09:12
PROVIDERS: Internal Medicine Endocrinology, Diabetes & Metabolism
DX: E10.65 Type 1 diabetes mellitus with hyperglycemia (principal)
CPT/HCPCS: 82043; 82570

== ENCOUNTER → 2022-07-10 | Outpatient (CLI) | payer OTHER ==
[2022-07-10 13:35] LABS: Appearance, Urine Cloudy (Clear); Bilirubin, Urine Neg (Neg); Blood, Urine 5+ (Neg); Color, Urine Red (P-Yellow); Glucose Qualitative, Urine 1+ (Neg); Ketones, Urine 1+ (Neg); Leukocyte Esterase, Urine 1+ (Neg); Nitrite, Urine Neg (Neg); Protein, Urine 3+ (Neg); Urobilinogen, Urine NORM (Normal); pH, Urine 6.5 (5.0-8.0)
[2022-07-10 14:03] LABS: Red Blood Cells, Urine TNTC /hpf (0-2)
[2022-07-10 14:04] LABS: Bacteria Many /hpf; Hyaline Casts 0-2 /lpf (0-2); Renal Epithelial Few /hpf (0-Rare); Squamous Epithelial Cells Few /hpf (Few); Transitional Epithelial Cells Rare /hpf (0-Rare)
== END | disposition home or self-care (01) ==
LOC: LAB SHORT 12:45 → LAB 12:45
PROVIDERS: Family Medicine
DX: R82.90 Unspecified abnormal findings in urine (principal)
CPT/HCPCS: 81001; 87086

== ENCOUNTER → 2023-05-12 | Outpatient (CLI) | payer OTHER | LOC: LAB 16:09 → LAB SHORT 16:09 | DX: L97.919 Non-pressure chronic ulcer of unspecified part of right lower leg with unspecified severity (principal) | CPT/HCPCS: 87070; 87077; 87147; 87186; 87205 ==

== ENCOUNTER 2023-05-18 14:06 | Day surgery (SDC) | payer OTHER | END 2023-05-18 22:42 | disposition home or self-care (01) | LOC: WOUND 14:06 | DX: L02.415 Cutaneous abscess of right lower limb (principal); Z96.642 Presence of left artificial hip joint; E78.5 Hyperlipidemia, unspecified; I10 Essential (primary) hypertension; I87.2 Venous insufficiency (chronic) (peripheral); E11.622 Type 2 diabetes mellitus with other skin ulcer; E11.51 Type 2 diabetes mellitus with diabetic peripheral angiopathy without gangrene | CPT/HCPCS: A6213; G0463 ==

== ENCOUNTER 2023-05-25 05:32 | Day surgery (SDC) | payer OTHER | END 2023-05-25 23:07 | disposition home or self-care (01) | LOC: WOUND 05:32 | DX: L02.415 Cutaneous abscess of right lower limb (principal); E11.9 Type 2 diabetes mellitus without complications; E78.5 Hyperlipidemia, unspecified; I10 Essential (primary) hypertension | CPT/HCPCS: A6213; G0463 ==

== ENCOUNTER → 2023-07-28 | Outpatient (CLI) | payer OTHER ==
[2023-07-28 17:41] LABS: Bacteria Rare /hpf; Red Blood Cells, Urine 50-100 /hpf (0-2); Squamous Epithelial Cells Not Seen /hpf (Few); White Blood Cells, Urine 0-2 /hpf (0-5)
== END | disposition home or self-care (01) ==
LOC: LAB SHORT 15:40
PROVIDERS: Family Medicine
DX: N39.0 Urinary tract infection, site not specified (principal)
CPT/HCPCS: 81015; 87086